=== PATIENT | male | born 1935 | race Caucasian/White ===

== ENCOUNTER → 2020-06-20 10:09 | Outpatient (CLI) | payer MEDICARE, OTHER, SELFPAY ==
[2020-06-20] MEDS: COVID-19 VACC, Ad26(JANSSEN)/PF 0.5 ML IM (10:17)
== END ==
PROVIDERS: Visit Provider Internal Medicine
DX: Z23 Encounter for immunization (principal)
CPT/HCPCS: 0031A; 91303

== ENCOUNTER → 2020-09-08 14:53 | Outpatient (ROUT) | payer MEDICARE, OTHER, SELFPAY ==
[2020-09-08 15:47] LABS: BUN Creatinine Ratio 29.8 (6-22); Blood Urea Nitrogen 51 mg/dL (9-20); Calcium 9.5 mg/dL (8.4-10.2); Carbon Dioxide 22 mmol/L (22-32); Chloride 107 mmol/L (98-107); Estimated Glomerular Filt Rate 38.3 mL/min (>60); Glucose 111 mg/dL (80-110); HEMOLYSIS < 15 (0-50); Potassium 4.9 mmol/L (3.4-5.1); Sodium 139 mmol/L (137-145)
== END ==
PROVIDERS: Visit Provider Internal Medicine
DX: I10 Essential (primary) hypertension (principal)
CPT/HCPCS: 80048

== ENCOUNTER → 2021-07-27 09:51 | Outpatient (CLI) | payer MEDICARE, OTHER, SELFPAY ==
--- NOTE | 2021-07-27 09:55 | DI.RAD.S_ITS ---
PROCEDURE: XR CHEST 2V INDICATIONS: rib pain, lower rib tenderness TECHNIQUE: 2 views of the chest were acquired. COMPARISON: [facility], , CHEST 1 VIEW, 09/18/2016, 9:07. FINDINGS: Surgical changes and devices: None. Lungs and pleura: Hyperinflated and hyperlucent lungs. Dense opacities in the right upper and right mid lung, likely pleural plaques. There is horizontal scarring at both lung bases. No acute parenchymal consolidations, effusion, or pneumothorax. Mediastinum: Mediastinal contours are normal. Heart size is normal. Bones and chest wall: No visible displaced rib fractures. Degenerative appearing vertebral body height loss and disc height loss in the midthoracic spine IMPRESSION: 1. No visible rib fractures. 2. No acute cardiopulmonary disease. Dictated by: Ethel Zuleta M.D. on 07/27/2021 at 13:54 Approved by: Ethel Zuleta M.D. on 07/27/2021 at 13:56
== END ==
PROVIDERS: PCP Internal Medicine; Referring Provider Internal Medicine; Visit Provider Internal Medicine
DX: R07.81 Pleurodynia (principal)
CPT/HCPCS: 71046

== ENCOUNTER → 2021-11-15 10:25 | Outpatient (CLI) | payer MEDICARE, OTHER, SELFPAY ==
--- NOTE | 2021-11-15 | DI.US.S_ITS ---
PROCEDURE: US CAROTID DOPPLER BI INDICATIONS: Occlusion stenosis of bilateral carotid arteries TECHNIQUE: Color and pulse Doppler interrogation was performed of both carotid systems, with image documentation and velocity measurements. COMPARISON: None. FINDINGS: Stenosis calculations are based on SRU (Society of Radiologists in Ultrasound) criteria. The flow velocities and the arterial waveforms are normal within both carotid arterial systems. Atherosclerotic plaque is seen on both sides. The estimated degree of internal carotid artery stenosis is less than 50%. Antegrade flow is confirmed within both vertebral arteries. There is elevated flow velocity seen within the right external carotid artery measuring 261 centimeters/second. IMPRESSION: No hemodynamically significant stenosis is seen of the internal carotid arteries or the vertebral arteries. By velocity criteria, there is greater than 50% stenosis seen involving the right external carotid artery. Atherosclerotic plaque is noted bilaterally. Dictated by: Bob Vera M.D. on 11/15/2021 at 11:59 Approved by: Bob Vera M.D. on 11/15/2021 at 11:59
== END ==
PROVIDERS: PCP Internal Medicine; Referring Provider Internal Medicine; Visit Provider Internal Medicine
DX: I65.23 Occlusion and stenosis of bilateral carotid arteries (principal)
CPT/HCPCS: 93880

== ENCOUNTER → 2021-12-21 14:34 | Outpatient (CLI) | payer MEDICARE, OTHER, SELFPAY ==
--- NOTE | 2021-12-21 | DI.ECHO.S_ITS ---
[facility]---------+ [facility] +---------+ : : [address] : : : : [id number] : : : : Phone: [phone] Echocardiogram Report + + :Name: DIANA ROCK Study Date: 12/21/2021 Height: 70 in : :[facility] ReadingLocation: Weight: 225 lb : : Gender: Male BSA: 2.2 m2 : :: 1935 Age: 86 yrs BP: 197/97 mmHg: :Reason For Study: Dyspnea : :Ordering Physician: : :Merry Giordano Performed By: Reji Jackson : :Referring: Merry Giordano : + + Interpretation Summary The left ventricle is normal in size and wall thickness. Left ventricular systolic function is normal. The ejection fraction is estimated to be 60-65%. There are no focal wall motion abnormalities. Diastolic parameters suggest a relaxation abnormality of the left ventricle, consistent with probable normal filling pressures. The right ventricle is normal in size and function. Pulmonary artery pressures cannot be estimated because of the lack of a measurable TR jet velocity. Both atria are normal in size. There is no significant valvular heart disease. The aortic root is normal size. Procedure: A two-dimensional transthoracic echocardiogram with color flow and Doppler was performed. The study quality was technically adequate. There is no prior echocardiogram noted for this patient. Left Ventricle: The left ventricle is normal in size and wall thickness. Left ventricular systolic function is normal. The ejection fraction is estimated to be 60-65%. There are no focal wall motion abnormalities. Diastolic parameters suggest a relaxation abnormality of the left ventricle, consistent with probable normal filling pressures. Right Ventricle: The right ventricle is normal in size and function. Atria: Both atria are normal in size. The interatrial septum grossly appears intact with no obvious evidence for an atrial septal defect. Mitral Valve: The mitral valve is normal in structure and function. There is no mitral regurgitation noted. Aortic Valve: There is mild aortic valve sclerosis. No aortic regurgitation is present. Tricuspid Valve: The tricuspid valve is normal in structure and function. There is trace tricuspid regurgitation. Pulmonary artery pressures cannot be estimated because of the lack of a measurable TR jet velocity. Pulmonic Valve: The pulmonic valve is normal in structure and function. There is no pulmonic valvular regurgitation. There is no significant valvular heart disease. Great Vessels: The aortic root is normal size. The ascending aorta could not be visualized. The IVC is of normal diameter and collapses greater than 50% with a sniff. This suggests a low right atrial pressure of 3 mm Hg. Pericardium/ Pleura There is no pericardial effusion. There is no pleural effusion. MMode/2D Measurements & Calculations LVIDd: 4.6 cm LVOT diam: 2.2 cm LVIDs: 3.0 cm Ao root diam: 3.4 cm FS: 34.8 % IVSd: 0.90 cm LVPWd: 0.70 cm LV munson. diameter/BSA (cm/m^2): 2.1 LV sys. diameter/BSA (cm/m^2): 1.4 LA dimension: 3.6 cm RA long axis: 4.0 cm LA A2 area: 22.9 cm2 IVC diam: 2.1 cm LA A4 area: 17.7 cm2 LA length (vol): 6.3 cm LA vol: 54.4 ml LA vol index: 24.8 ml/m2 TAPSE_phl: 2.1 cm Doppler Measurements & Calculations Ao V2 max: 191.0 cm/sec LVOT Max Humphrey: 129.0 cm/sec Ao V2 mean: 130.0 cm/sec LV V1 max P.7 mmHg Ao max P.0 mmHg LV V1 VTI: 27.9 cm Ao mean P.0 mmHg YANETH(I,D): 2.8 cm2 Ao V2 VTI: 37.5 cm YANETH(V,D): 2.6 cm2 sev ratio: 0.74 YANETH indexed to BSA (cm^2/m^2): 1.3 MV E max humphrey: 86.1 cm/sec SV(LVOT): 106.1 ml MV A max humphrey: 109.0 cm/sec MV E/A: 0.79 Med Peak E' Humphrey: 6.7 cm/sec E/E' med: 12.9 Lat Peak E' Humphrey: 6.6 cm/sec E/E' lat: 13.1 E/e' average: 13.0 MV dec time: 0.31 sec AV VR_phl: 0.68 MV P1/2t-pr_phl: 90.0 msec YANETH(MARLY)/BSA_phl: 1.3 Reading Physician:07:45 PM
== END ==
PROVIDERS: PCP Internal Medicine; Referring Provider Internal Medicine Pulmonary Disease; Visit Provider Internal Medicine Pulmonary Disease
DX: R06.00 Dyspnea, unspecified (principal)
CPT/HCPCS: 93306

== ENCOUNTER 2022-01-30 23:37 | Emergency (ER) | payer MEDICARE, OTHER, SELFPAY ==
[2022-01-30 23:49] VITALS: BP 219/93; PULSE 87; RESP 22; TEMP 36.8; O2SAT 96
--- NOTE | 2022-01-31 00:56 | DI.CT.S_ITS ---
PROCEDURE: CT FACIAL BONES WO CON INDICATIONS: Fall/right facial pain/injury TECHNIQUE: Noncontrast 2.5 mm thick axial images acquired from the mandible through the frontal sinuses, with coronal and sagittal reformatting. For radiation dose reduction, the following was used: automated exposure control, adjustment of mA and/or kV according to patient size. COMPARISON: None. FINDINGS: Image quality: Excellent. Bones and teeth: There is a mildly depressed fracture of the outer table of the right frontal sinus of indeterminate acuity. Orbital szymanski are intact. Nasal bones and septum are intact. Visualized portions of the mandible demonstrate no fractures or subluxation. Zygomatic arches are intact. Pterygoid plates are intact. Visualized portions of the skull base and auditory canals are intact. Sinuses: Paranasal sinuses are aerated, without fluid levels, mucosal thickening, or mucoceles. Mastoid air cells are aerated. Soft tissues: There is mild right premandibular and premaxillary soft tissue swelling. No enlarged lymph nodes. No soft tissue lacerations or debris. The globes appear intact. Vascular: Visualized vascular structures appear normal in the absence of contrast. Bony vascular foramina and canals are intact. IMPRESSION: 1. Mildly depressed fracture of the outer wall of the right frontal sinus of indeterminate acuity but likely nonacute given the absence of overlying soft tissue swelling. Recommend correlation with clinical exam and history. 2. Elsewhere, no definite acute facial bone fractures identified. Dictated by: Jonah Houston M.D. on 01/31/2022 at 2:12 Approved by: Jonah Houston M.D. on 01/31/2022 at 2:20
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
[2022-01-31] MEDS: LIDOCAINE 2% INJ SDV 5 ML (02:31)
[2022-01-31] MEDS: BACITRACIN OINT 0.9 GM PCKT 1 APPLIC TOP (02:36)
[2022-01-31 02:41] VITALS: BP 180/89; PULSE 83; RESP 18; TEMP 36.5; O2SAT 96
== END 2022-01-31 02:44 | disposition home or self-care (01) ==
PROVIDERS: Emergency Provider Emergency Medicine; PCP Internal Medicine
DX: S01.21XA Laceration without foreign body of nose, initial encounter (principal); W01.118A Fall on same level from slipping, tripping and stumbling with subsequent striking against other sharp object, initial encounter
CPT/HCPCS: 12001; 70486; 99284

== ENCOUNTER → 2022-07-06 14:42 | Outpatient (CLI) | payer MEDICARE, SELFPAY ==
--- NOTE | 2022-07-06 | DI.RAD.S_ITS ---
PROCEDURE: XR CERVICAL SPINE 2V OR 3V INDICATIONS: NECK PAIN TECHNIQUE: 3 view(s) of the cervical spine were acquired. COMPARISON: None. FINDINGS: Bones: No fractures or dislocations to the C7-T1 level. Straightening of normal cervical lordosis is seen. Degenerative endplate changes and bilateral facet hypertrophic changes are noted throughout cervical spine. The lateral masses of C1 appear intact on the odontoid view. No suspicious bony lesions. Soft tissues: No prevertebral soft tissue swelling. IMPRESSION: Degenerative disc disease throughout cervical spine. No gross acute fracture or dislocation. Dictated by: Blane Khan M.D. on 07/06/2022 at 17:01 Approved by: Blane Khan M.D. on 07/06/2022 at 17:01
== END ==
PROVIDERS: PCP Physician Assistant; Referring Provider Physician Assistant; Visit Provider Physician Assistant
DX: M50.30 Other cervical disc degeneration, unspecified cervical region (principal)
CPT/HCPCS: 72040

== ENCOUNTER → 2022-07-24 08:58 | Outpatient (CLI) | payer MEDICARE, SELFPAY ==
--- NOTE | 2022-07-24 | DI.MRI.S_ITS ---
PROCEDURE: MR CERVICAL SPINE WO CON INDICATIONS: Cervicalgia TECHNIQUE: Noncontrast sagittal T1 spin echo and T2 fast spin echo, sagittal STIR, foraminal oblique sagittal T2 fast spin echo, and axial gradient echo or T2 fast spin echo through the cervical spine. COMPARISON: None. FINDINGS: Image quality: Excellent. Alignment and Curvature: Trace anterolisthesis of C4 on C5 and of C6 on C7. Bone Marrow: Marrow demonstrates normal overall signal. Spinal Cord: Visualized spinal cord has normal size and signal. No cerebellar tonsillar herniation. Paraspinous Soft Tissues: No paravertebral masses. Prevertebral soft tissues are normal in thickness. C2-C3: There is posterior disc bulge and there is prominent ligamentous hypertrophy. There is iuga-ax-ircfoguy canal stenosis, underestimated by choice of axial scan plane. There is bilateral facet hypertrophy and bilateral uncovertebral joint hypertrophy. There is at least moderate bilateral foraminal narrowing with flattening deformity on the exiting bilateral C3 nerve roots. C3-C4: Disc space is partially fused. Posterior osteophyte flattens the ventral cord. AP diameter of the canal is 9.2 mm. There is quite prominent left facet hypertrophy. There is also right facet hypertrophy. There is moderate to severe bilateral foraminal narrowing with bilateral foraminal C4 nerve root impingement. C4-C5: No canal stenosis. Very prominent left facet hypertrophy. Right facet hypertrophy as well. There is moderate to severe left foraminal narrowing with impingement on the left C5 nerve root. There is mild right foraminal narrowing. C5-C6: Diffuse disc bulge. No canal stenosis. Quite prominent left facet hypertrophy. Right facet hypertrophy, as well. Moderate to severe bilateral foraminal narrowing with a degree of bilateral foraminal C6 nerve root impingement. C6-C7: Anterolisthesis of C6 on C7. Posterior disc bulge. Prominent bilateral facet hypertrophy. Zxle-zl-mnfelzdj central canal stenosis, underestimated by choice of axial scan plane. Mild bilateral foraminal narrowing. C7-T1: Disc bulge. Bilateral facet hypertrophy. No central canal stenosis. Hels-ak-eonzsbta left foraminal narrowing. IMPRESSION: 1. There is extensive cervical spondylitic change with impressive multilevel left facet arthropathy. There is bilateral facet arthropathy. 2. Canal stenosis is mild to moderate at C2-C3, [id number]-wypvlzwb at C3-C4, and jpak-mb-bjgskows at C6-C7. 3. Significant multilevel foraminal narrowing as described above. Findings include moderate to severe bilateral foraminal narrowing at C3-C4, moderate to severe left foraminal narrowing at C4-C5, and moderate to severe bilateral foraminal narrowing at C5-C6. Dictated by: Lee He M.D. on 07/24/2022 at 12:31 Approved by: Lee He M.D. on 07/24/2022 at 13:36
== END ==
PROVIDERS: PCP Physician Assistant; Referring Provider Physician Assistant; Visit Provider Physician Assistant
DX: M47.812 Spondylosis without myelopathy or radiculopathy, cervical region (principal); M48.02 Spinal stenosis, cervical region; M54.2 Cervicalgia
CPT/HCPCS: 72141

== ENCOUNTER → 2022-07-30 10:40 | Outpatient (CLI) | payer MEDICARE, SELFPAY ==
--- NOTE | 2022-07-30 10:41 | DI.RAD.S_ITS ---
PROCEDURE: XR SHOULDER RT MIN 2V INDICATIONS: R shoulder pain TECHNIQUE: 3 views of the shoulder were acquired. COMPARISON: None. FINDINGS: Bones: No fractures or dislocations. No suspicious bony lesions. Visualized ribs appear intact. AC joint space narrowing with associated osteophytosis. Soft tissues: No suspicious soft tissue calcifications. IMPRESSION: Moderate acromioclavicular osteoarthritis. Dictated by: Fernando Burris M.D. on 07/30/2022 at 13:19 Approved by: Fernando Burris M.D. on 07/30/2022 at 13:19
== END ==
PROVIDERS: PCP Physician Assistant; Referring Provider Anesthesiology; Visit Provider Anesthesiology
DX: M25.511 Pain in right shoulder (principal); M19.011 Primary osteoarthritis, right shoulder; M54.2 Cervicalgia; G89.29 Other chronic pain
CPT/HCPCS: 73030; 99214

== ENCOUNTER 2023-05-16 09:06 | Outpatient (CLI) | payer MEDICARE, SELFPAY ==
[2023-05-16] VITALS (8 sets, daily range): BP systolic 116–189; BP diastolic 55–93; PULSE 85–97; RESP 12–21; TEMP 36.9; O2SAT 92–96
--- NOTE | 2023-05-16 09:45 | DI.RAD.S_ITS ---
PROCEDURE: PAIN C/T INTERLAMINAR INJECT INDICATIONS: spinal stenosis COMPARISON: None. FINDINGS: Fluoroscopic spot filming was performed to verify placement of spinal needles at the C6-7 level(s), as labeled on the films. Appropriate location(s) of the needle tip(s) was confirmed by injection of iodinated contrast. IMPRESSION: Fluoroscopic guidance utilized for a C6-7 epidural injection. Dictated by: Fernando Burris M.D. on 05/16/2023 at 14:11 Approved by: Fernando Burris M.D. on 05/16/2023 at 14:11
[2023-05-16] MEDS: MIDAZOLAM 2 MG/2 ML VIAL IV (10:35)
[2023-05-16] MEDS: BUPIVACAINE 0.25% (PF) VIAL 2 ML INJ (10:39)
[2023-05-16] MEDS: DEXAMETHASONE 10 MG/ML VIAL 20 MG INJ (10:40)
[2023-05-16] MEDS: iopamidoL 15 ML VIAL 3 ML INJ (10:40)
--- NOTE | 2023-05-16 10:53 | P.PCN_ITS ---
Date/Time/Diagnoses Date of procedure: 05/16/23 Time of procedure: 10:53 Pre-procedure diagnosis: 1. CERVICAL STENOSIS, 2. CERVICAL HNP WITH UPPER EXTREMITY RADICULAR FEATURES Post-procedure diagnosis: same Procedure Notes Procedure: 1. FLUORSCOPICALLY GUIDED CONTRAST CONTROLLED INTERLAMINAR EPIDURAL STEROID INJECTION - C6/7 TL CORNELL Indications: Kvng is referred by NELLIE Larsen for treatment of Cervical HNP with Upper Extremity Paresthesias. Physician: Aston Mendez Total Fluoroscopy time (seconds): 24 Total sedation minutes: 14 Complications: none Procedure in detail & Post-procedure care: FINDINGS Cervical Stenosis due to disc deterioration and nerve root irritation and nerve root irritation DESCRIPTION OF PROCEDURE Fluoroscopically guided, contrast-controlled C6/7 translaminar epidural steroid injection with conscious sedation. Following review of allergy and review of potential side effects and complications, including, but not necessarily limited to, infection, allergic reaction, local tissue breakdown, temporary as well as permanent nerve injury, stroke, paralysis, and possible , the patient indicated that patient understood and agreed to proceed. An informed consent document was signed by the patient, witnessed by a nurse, and placed in the patient's chart. Additionally, other treatment options including modalities, medications, and physical therapy were reviewed with the patient. After review of previous anaesthesic history and IV conscious sedation the patient was deemed safe to proceed with today?s procedure with IV conscious puneet tion as ASA class II designation. Safety time-out was performed to confirm patient ID, procedure to be performed and site of procedure. IV sedation was accomplished with a combination of 2mg of Versed administered by the RN after DO order, titrated to patient comfort during the course of the procedure while the patient remained responsive to all verbal commands. In the prone position, following sterile prep and drape of the cervical region, the C6/7 translaminar space was identified fluoroscopically. The skin was anesthetized via a 25-gauge 1.5-inch needle with 1% lidocaine solution. At this point, a 25-gauge, 2.5-inch short bevel spinal needle was atraumatically introduced and advanced under fluoroscopic guidance into epidural space at the C6/7 translaminar space. Depth was confirmed on lateral view. Radiological data, including multiple fluoroscopic views of the cervical spine, reveal a spinal needle at the C6/7 translaminar space. Lateral views then show placement of the needle in the epidural space. Subsequent views show contrast material flowing superiorly and inferiorly in the epidural space. DSA fluoroscopy with live contrast injection, once again, confirmed no vascular or intrathecal uptake. At this point, using loss of resistance technique with saline and air, the epidural space was entered. Following negative aspiration, injection of approximately 1.5 cc of Isovue-200 with live fluoroscopy in the AP view confirmed epidural flow in the epidural space without vascular or intrathecal uptake observed. Subsequently, a test dose of 1 cc of 1% lidocaine solution was injected and patient was observed for two minutes without signs or symptoms of complications, including abdominal pain, shortness of breath, bilateral upper or lower extremity weakness, nausea and vomiting, prior to steroid injection. At this point, 2cc or 20mg of dexamethasone was then injected without incident. The patient tolerated the procedure well without signs or symptoms of com plications prior to being transferred to the recovery area for further monitoring, The patient was then transferred to the recovery area where they were observed for an appropriate period of time after the injection. The patient reported a VAS score of 6 prior to the procedure and a post-procedure VAS of 0. POST OP INSTRUCTIONS The patient was provided a Pain Log to continue to record their response to the target-specific procedure prior to follow-up visit with the referring provider. Additionally, specific post-injection care instructions and a contact number to our office were provided if concerns arise regarding possible complications associated with the procedure are suspected.
== END 2023-05-16 11:13 | disposition home or self-care (01) ==
LOC: RAD 09:06
PROVIDERS: PCP Physician Assistant; Referring Provider Physical Medicine & Rehabilitation; Visit Provider Physical Medicine & Rehabilitation
DX: M48.02 Spinal stenosis, cervical region (principal); M50.123 Cervical disc disorder at C6-C7 level with radiculopathy
CPT/HCPCS: 62321; 99152; J1100; J2250; J3490

== ENCOUNTER → 2023-05-17 08:51 | Outpatient (CLI) | payer MEDICARE, SELFPAY ==
[2023-05-17 10:51] LABS: Creatinine Urine Random 107.6 mg/dL
[2023-05-17 10:55] LABS: Microalbumi Creatinin Ratio Ur 51.1 ug/mg CR (<30); Microalbumin Urine Random 5.5 mg/dL (0-1.6)
[2023-05-17 10:57] LABS: Add Manual Diff / Slide Review NO; Basophils Absolute Auto 0 /uL (0-100); Basophils Percent Auto 0.1 % (0-2); Eosinophils Absolute Auto 0 /uL (0-450); Eosinophils Percent Auto 0.1 % (2-4); Hematocrit 36.6 % (41-53); Hemoglobin 12.8 g/dL (13.5-17.5); Lymphocytes Absolute Auto 400 /uL (1100-4500); Lymphocytes Percent Auto 4.8 % (25-40); Mean Corpuscular HGB Conc 34.9 % (30-36); Mean Corpuscular Hemoglobin 35.6 PG (26-34); Monocytes Absolute Auto 300 /uL (0-900); Monocytes Percent Auto 4.2 % (3-14); Neutrophils Absolute Auto 7100 /uL (1500-7000); Neutrophils Percent Auto 90.8 % (50-75); Platelet Count 155 X10^3/uL (150-400); Red Blood Cell Count 3.59 X10^6/uL (4.5-5.9); Red Cell Distribution Width 13.4 % (11.6-14.8); White Blood Cell Count 7.8 X10^3/uL (4.5-11.0)
[2023-05-17 11:07] LABS: Alanine Aminotransferase 20 IU/L (<50); Albumin 4.2 g/dL (3.5-5.0); Albumin Globulin Ratio 1.4 (1.0-2.8); Alkaline Phosphatase 67 U/L (38-126); Aspartate Aminotransferase 24 IU/L (17-59); BUN Creatinine Ratio 29.4 (6-22); Bilirubin Total 0.9 mg/dL (0.2-1.3); Blood Urea Nitrogen 42 mg/dL (9-20); Calcium 9.5 mg/dL (8.4-10.2); Carbon Dioxide 18 mmol/L (22-32); Chloride 107 mmol/L (98-107); Cholesterol 190 mg/dL (140-199); Estimated Glomerular Filt Rate 47 mL/min (>60); Globulin 3.1 g/dL (1.7-4.1); Glucose 111 mg/dL (80-110); HDL Cholesterol 69 mg/dL (40-60); HEMOLYSIS < 15 (0-50); LDL Cholesterol Calculated 108 mg/dL (<100); Magnesium 1.5 mg/dL (1.6-2.3); Potassium 5.1 mmol/L (3.4-5.1); Sodium 135 mmol/L (137-145); Total Protein 7.3 g/dL (6.3-8.2); Triglycerides 66 mg/dL (35-150)
[2023-05-17 11:41] LABS: TSH w/ Reflex to FT4 1.89 uIU/mL (0.47-4.68)
[2023-05-19 06:08] LABS: x Labcorp Estim. Avg Glu (eAG) 105 mg/dL (.); x Labcorp Hemoglobin A1c 5.3 % (4.8-5.6)
== END ==
PROVIDERS: PCP Physician Assistant; Referring Provider Internal Medicine Cardiovascular Disease; Visit Provider Internal Medicine Cardiovascular Disease
DX: I10 Essential (primary) hypertension; I49.3 Ventricular premature depolarization; E78.5 Hyperlipidemia, unspecified; R06.02 Shortness of breath; Z13.1 Encounter for screening for diabetes mellitus; I20.0 Unstable angina
CPT/HCPCS: 36415; 80053; 80061; 82043; 82570; 83036; 83735; 84443; 85025

== ENCOUNTER → 2023-07-02 10:30 | Outpatient (CLI) | payer MEDICARE, SELFPAY ==
--- NOTE | 2023-07-02 10:31 | DI.CT.S_ITS ---
PROCEDURE: CT CHEST WO CON INDICATIONS: Solitary pulmonary nodule TECHNIQUE: Noncontrast 2.0-2.5 mm thick sections acquired from the pulmonary apices to the posterior costophrenic angles. 7 mm thick axial MIP, and 5 mm coronal and sagittal reformats were then acquired. For radiation dose reduction, the following was used: automated exposure control, adjustment of mA and/or kV according to patient size. COMPARISON: X-ray chest 06/19/2023. FINDINGS: Image quality: Diagnostic. Lower Neck: No enlarged lymph nodes. Partially visualized calcification in the region of the bilateral tonsils/upper cervical region, incompletely evaluated. Thyroid: No thyroid nodules which require sonographic follow up, per consensus guidelines. Axillae: No enlarged lymph nodes. Chest Wall: Unremarkable. Bones: Degenerative changes, kyphosis Lungs and Pleura: Emphysematous lung changes No pneumothorax or pleural effusions. No consolidation or suspicious nodules. Multiple scattered 3 millimeter nodule seen, most likely benign. Benign calcified 6 x 5 x 7 millimeter nodule seen in the right upper lung 83/3. The 1.1 centimeter density seen on prior x-ray chest is not definitely visualized in the lung truong . Heart: Heart size is normal. No pericardial effusion. Severe coronary calcifications Thoracic Vessels: The aorta and pulmonary arteries demonstrate normal size. Mediastinum and Toya: No enlarged lymph nodes. Esophagus: No wall thickening. No hiatal hernia. Upper Abdomen: Visualized upper abdomen solid organs and bowel loops appear normal. IMPRESSION: 1. No suspicious pulmonary nodule seen. Pulmonary nodule/chest density noted on 06/19/2023 x-ray chest is not discernible on today's scan. Emphysematous lung changes present. 2. Severe coronary calcifications noted Dictated by: Neri Rae M.D. on 07/02/2023 at 14:02 Approved by: Neri Rae M.D. on 07/02/2023 at 14:25
== END ==
LOC: CT 10:31
PROVIDERS: PCP Physician Assistant; Referring Provider Physician Assistant; Visit Provider Physician Assistant
DX: R91.1 Solitary pulmonary nodule (principal); I25.10 Atherosclerotic heart disease of native coronary artery without angina pectoris
CPT/HCPCS: 71250

== ENCOUNTER → 2023-08-01 09:13 | Outpatient (CLI) | payer MEDICARE, SELFPAY ==
--- NOTE | 2023-08-01 09:13 | DI.NM.S_ITS ---
PROCEDURE: NM CRISTIANA PERF SPECT R&S PHARM Rest and pharmacological stress myocardial perfusion SPECT with gated imaging and ejection fraction RADIOPHARMACEUTICAL: 12.6 mCi Tc-99m tetrafosmin IV at rest and 27/2 mCi Tc-99m tetrafosmin IV at peak effect of pharmacological stress. Uuq-[id number]-[id number] was performed. INDICATIONS: FORMER SMOKER/SHORTNESS OF BREATH TECHNIQUE: Radiopharmaceutical was injected at peak stress test, and also at rest. SPECT images were obtained. SPECT myocardial perfusion images were displayed in short axis, horizontal long axis, and vertical long axis views. Gated images were reviewed using TRANSCORP software. COMPARISON: None. CARDIAC STRESS: A pharmacologic stress test was performed under the supervision of an attending staff, using an infusion of lexiscan 0.4mg IV X1. Hemodynamic data: There is normal blood pressure and heart rate response to pharmacologic stress. Symptoms: The patient denied anginal chest pain. Aminophylline: none EKG: No diagnostic changes of ischemia; occasional PVCs during the study. FINDINGS: Raw data: There is good myocardial uptake of radiotracer. No significant motion artifacts. Gxsb-yu-volky ratio is 0.31 (normal is less than 0.38 for tetrafosmin tracer). Left ventricle function: Gated images demonstrate normal left ventricular wall thickening. No segmental wall motion abnormalities. No transient ischemic dilation; TID is 1.17 (normal less than 1.3). Left ventricle resting end diastolic volume is 100 mL. Left ventricle stress ejection fraction is 72% ; normal range is above 45%. Myocardial perfusion: There is a mildly intense fixed apical defect that persists on prone imaging and it appears to be apical thinning artifact but old non-transmural infarction can't be definitively excluded. No ischemia. SSS 1. IMPRESSION: Low risk, probably normal pharmaceutical nuclear stress test. 1) There is a mildly intense fixed apical defect that persists on prone imaging and it appears to be apical thinning artifact but old non-transmural infarction can't be definitively excluded. No ischemia. SSS 1. 2) Normal left ventricular size, wall motion, and systolic function (EF post stress 72%). 3) No ST changes with lexiscan. 4) No angina during the study. 5) No prior nuclear stress test available for comparison. Dictated by: David Abreu MD on 08/02/2023 at 12:52 Approved by: David Abreu MD on 08/02/2023 at 12:54
--- NOTE | 2023-08-01 09:14 | DI.ECHO.S_ITS ---
[facility] : : [address] : : [place] : : [id number] : : Phone: [phone] Echocardiogram Report + + :Name: PRANAVDIANA VARGAS Dontae Study Date: 08/01/2023 Height: 70 in : :[facility] ReadingLocation: Weight: 224 lb : : Gender: Male BSA: 2.2 m2 : :: 1935 Age: 87 yrs BP: 151/89 mmHg: :Reason For Study: FORMER SMOKER, SHORTNESS OF BREATH : :Ordering Physician: ISHMAEL, : :CARO Diggs Performed By: Katherine Sims : :Referring: CARO KEY : + + Interpretation Summary The ejection fraction is estimated to be 60-65%. Diastolic function could not be accurately assessed due to contradictory data. The right ventricle is normal in size and function. No significant valvular abnormalities. Pulmonary artery pressures cannot be estimated because of the lack of a measurable TR jet velocity but the IVC suggests a CVP of around 3 mmHg. Compared to the prior study dated 12/21/2021, no significant change. Procedure: A two-dimensional transthoracic echocardiogram with color flow and Doppler was performed. The study quality was technically adequate. Comparison is made with the echocardiogram of 12/21/2021. The patient had occasional PVCs during the exam. The heart rate ranged between 63-73 bpm during the study. Left Ventricle: The left ventricle is normal in size and wall thickness. The ejection fraction is estimated to be 60-65%. Diastolic function could not be accurately assessed due to contradictory data. Right Ventricle: The right ventricle is normal in size and function. Atria: The left atrial size is normal. Right atrial size is normal. There is no Doppler evidence for an interatrial shunt. Mitral Valve: There is mild mitral annular calcification. There is trace mitral regurgitation. Aortic Valve: The aortic valve is slightly calcified. There is mild aortic valve sclerosis. The aortic valve is trileaflet. The peak aortic velocity is 2.2 m/sec. The aortic valve mean gradient is 11 mmHg. The calculated aortic valve area is 1.9 cm2. There is no hemodynamically significant valvular aortic stenosis. No aortic regurgitation is present. Tricuspid Valve: The tricuspid valve is normal in structure and function. There is trace tricuspid regurgitation. Pulmonary artery pressures cannot be estimated because of the lack of a measurable TR jet velocity but the IVC suggests a CVP of around 3 mmHg. Pulmonic Valve: The pulmonic valve leaflets are thin and pliable; valve motion is normal. There is trace pulmonic regurgitation. Great Vessels: The aortic root is normal size. The ascending aorta is at the upper limits of normal in size. The IVC is of normal diameter and collapses greater than 50% with a sniff. This suggests a low right atrial pressure of 3 mm Hg. Pericardium/ Pleura There is no pericardial effusion. There is no pleural effusion. MMode/2D Measurements & Calculations LVIDd: 5.3 cm LVOT diam: 2.1 cm LVIDs: 3.1 cm Ao root diam: 3.5 cm FS: 41.9 % asc Aorta Diam: 3.7 cm IVSd: 0.99 cm Ao Arch Diam (Prox Trans): 3.1 cm LVPWd: 1.1 cm LV munson. diameter/BSA (cm/m^2): 2.4 LV sys. diameter/BSA (cm/m^2): 1.4 LA A2 area: 22.5 cm2 RA long axis: 5.6 cm LA A4 area: 23.5 cm2 RA area: 17.5 cm2 LA length (vol): 6.3 cm RA vol: 46.5 ml LA vol: 71.5 ml RA : 21.2 ml/m2 LA vol index: 32.7 ml/m2 IVC diam: 1.8 cm RVD1 (basal): 3.7 cm RVD2 (mid): 2.9 cm TAPSE: 1.8 cm Doppler Measurements & Calculations Ao V2 max: 222.1 cm/sec LVOT Max Humphrey: 120.2 cm/sec Ao V2 mean: 149.8 cm/sec LV V1 max P.8 mmHg Ao max P.7 mmHg LV V1 VTI: 24.6 cm Ao mean P.0 mmHg YANETH(I,D): 1.9 cm2 Ao V2 VTI: 45.2 cm YANETH(V,D): 1.9 cm2 sev ratio: 0.54 YANETH indexed to BSA (cm^2/m^2): 0.89 MV E max humphrey: 83.6 cm/sec PA V2 max: 124.5 cm/sec MV A max humphrey: 123.9 cm/sec PA V2 mean: 83.4 cm/sec MV E/A: 0.67 PA mean P.1 mmHg Med Peak E' Humphrey: 4.5 cm/sec PA pr(Accel): 46.5 mmHg E/E' med: 18.6 Lat Peak E' Humphrey: 5.3 cm/sec E/E' lat: 15.9 E/e' average: 17.2 MV dec time: 0.[address] [facility] 87.6 ml Reading Physician:05:25 PM
== END ==
PROVIDERS: PCP Physician Assistant; Referring Provider Internal Medicine Cardiovascular Disease; Visit Provider Internal Medicine Cardiovascular Disease
DX: I34.81 Nonrheumatic mitral (valve) annulus calcification (principal); I35.8 Other nonrheumatic aortic valve disorders; R06.02 Shortness of breath; Z87.891 Personal history of nicotine dependence
CPT/HCPCS: 78452; 93017; 93306; A9502; J2785

== ENCOUNTER 2023-12-31 14:32 | Emergency (ER) | payer MEDICARE, SELFPAY ==
[2023-12-31] VITALS (14 sets, daily range): BP systolic 164–235; BP diastolic 77–109; PULSE 77–89; RESP 13–23; TEMP 36.1; O2SAT 95–97; BMI 32.1
--- NOTE | 2023-12-31 14:41 | EKG_ITS ---
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
--- NOTE | 2023-12-31 14:41 | DI.RAD.S_ITS ---
PROCEDURE: XR CHEST 1V INDICATIONS: chest pain TECHNIQUE: One view of the chest was acquired. COMPARISON: [facility], CR, XR CHEST 2V, 07/27/2021, 9:44. FINDINGS: Surgical changes and devices: None. Lungs and pleura: Lungs are clear. No pleural effusions or pneumothorax. Mediastinum: Mediastinal contours appear normal. Heart size is normal. Bones and chest wall: No suspicious bony lesions. Old right posterior lateral mid rib deformity is seen. Overlying soft tissues appear unremarkable. IMPRESSION: No acute cardiopulmonary pathology. Dictated by: Blane Khan M.D. on 12/31/2023 at 15:44 Approved by: Blane Khan M.D. on 12/31/2023 at 15:44
--- NOTE | 2023-12-31 14:44 | ED_ITS ---
HPI - General Adult General Chief complaint: Dizziness Stated complaint: dizziness, vomitting, high BP Time Seen by Provider: 12/31/23 14:44 Source: patient Mode of arrival: Wheelchair History of Present Illness HPI narrative: 88-year-old gentleman with a history of asthma/emphysema, hypertension, arthritis, hyperlipidemia, BPH presents complaining of acute dizziness followed by an episode emesis and blood pressure is noted to be high after the episode of emesis. He has describing no chest pain no shortness a breath. You had some fresh soup just prior to the emesis his had the same and has not been feeling ill. He describes no headache abdominal pain no diarrhea no constipation. Related Data Home Medications Medication Instructions Recorded Confirmed albuterol sulfate 90 mcg/actuation 2 puff INH ##0 09/18/16 12/31/23 aerosol inhaler (Ventolin HFA) fluticasone 100 mcg-salmeterol 50 1 puff BID ##0 09/18/16 12/31/23 mcg/dose blistr powdr for inhalation (Advair Diskus) hydrochlorothiazide 25 mg tablet 25 mg PO QDAY ##0 09/18/16 12/31/23 tiotropium bromide 18 mcg capsule 18 mcg RT 0600 ##0 09/18/16 12/31/23 with inhalation device (Spiriva with HandiHaler) trazodone 50 mg tablet 50 mg PO BEDTIME 07/30/22 12/31/23 allopurinol 100 mg tablet 100 mg PO DAILY 08/20/22 12/31/23 losartan 100 mg tablet 100 mg PO DAILY 04/29/23 12/31/23 tamsulosin 0.4 mg capsule 0.4 mg PO DAILY 04/29/23 12/31/23 ipratropium 0.5 mg-albuterol 3 mg 1.5 ml inhalation ONCE PRN 08/21/23 12/31/23 (2.5 mg base)/3 mL nebulization soln metoprolol succinate 25 mg 25 mg PO DAILY 08/21/23 12/31/23 tablet,extended release 24 hr rosuvastatin 10 mg tablet 10 mg PO ONCE PM 08/21/23 12/31/23 Previous Rx's Medication Instructions Recorded meloxicam 15 mg tablet 15 mg PO DAILY #90 tabs 08/29/23 ondansetron 4 mg disintegrating 4 mg PO Q8H PRN nausea and 12/31/23 tablet vomiting #10 tabs Allergies Allergy/AdvReac Type Severity Reaction Status Date / Time No Known Drug Allergies Allergy Verified 12/31/23 14:34 Review of Systems Review of Systems Narrative: Pertinent positive and negative findings as per HPI Patient History Medical History Cervical radiculopathy Facet arthritis of cervical region Post-void dribbling History of malignant neoplasm of prostate Biceps tendonitis on right Cervical spondylosis Subacromial bursitis Shoulder impingement Neck pain Right shoulder pain Social History Smoking Status: Former smoker Smoking Status: Former smoker Substance Use Type: does not use Exam Initial Vital Signs Initial Vital Signs: Vital Signs Temperature 97.0 F L 12/31/23 14:34 Pulse Rate 80 12/31/23 14:34 Respiratory Rate 18 12/31/23 14:34 Blood Pressure 215/99 H 12/31/23 14:34 Pulse Oximetry 97 12/31/23 14:34 Oxygen Delivery Method Room Air 12/31/23 14:34 General: Slightly pale but in no acute distress. Able to give a complete and coherent history. Well-nourished well-developed HEENT: Moist mucous membranes, normal sclera with reactive pupils, Respiratory: Lungs are clear to auscultation, no wheezing no rales no rhonchi. Full and symmetrical air movement Cardiac: Regular rate and rhythm, 4-6 systolic murmur Abdomen: Soft, nontender, no rebound or guarding, no flank pain Skin: Warm and dry, no rashes Neurologic: Grossly neurologically intact with no obvious asymmetries or abnorm alities Extremities: No trauma, well perfused, no lower extremity edema Psych: Cooperative, appropriate insight and affect Course Orders Ordered: ED Orders 12/31/23 14:41 XR chest 1V Stat Complete Blood Count AUTO DIFF Stat Comprehensive Metabolic Panel Stat Lipase Stat Magnesium Stat NT-proBNP (BNP-Adult 18+) Stat PTT Partial Thromboplastin Juan Pablo Stat Prothrombin Time INR Stat Troponin & CK Cardiac Panel Stat EKG-12 Lead Stat Vital Signs Vital signs: Vital Signs - 8 hr 12/31/23 14:34 Temperature 97.0 F L Pulse Rate 80 Respiratory Rate 18 Blood Pressure 215/99 H Pulse Oximetry 97 Oxygen Delivery Method Room Air Medical Decision Making MDM Narrative Medical decision making narrative: CC: Dizziness, vomiting Complicating co-morbidities: Asthma, hypertension, arthritis, hyperlipidemia, BPH Data collected from: patient, Differential considered: Gastroenteritis, food related emesis, bowel obstruction, acute coronary syndrome Exam documented above, pertinent findings include: After the episode of emesis patient is feeling significantly better, exam is benign Lab Test results independently reviewed as above. Pertinent findings: CBC shows a white count of 6.6 otherwise unremarkable Chemistries are notable for a potassium at 5.6, creatinine at 1.37 which is improved over his baseline. Magnesium is slightly elevated at 1.5 troponin is undetectable proBNP is normal Lipase is unremarkable Independently reviewed EKG: Sinus rhythm at a rate of 81, PVCs are appreciated. Partial bundle-branch block. No acute ischemic changes Imaging studies independently reviewed: Chest x-ray is unremarkable Treatments: Fluids, Zofran Re-evaluations: Patient states that he is feeling significantly better however still slightly dizzy. He has not having positional dizziness nor nystagmus. He needs to void after a L of fluid that has been given we will check urine sample Discussion: Patient is clearly feeling better after the fluids in the Zofran. Still a slight bit of nausea. No evidence of benign positional vertigo. No evidence of acute bacterial infection viral infection acute coronary syndrome, anemia, acute surgical abdomen or alternate diagnosis that would require additional workup, advanced imaging or hospitalization. He will be given a prescription for Zofran and I strongly encouraged them to return if he has worsening symptoms. Questions are answered and they are safe for discharge Discharge Plan Departure Patient Disposition: Home Clinical Impression: Dizziness Nausea & vomiting Qualifiers: Vomiting type: unspecified Qualified Code(s): R11.2 - Nausea with vomiting, unspecified Instructions: Nausea and Vomiting-Adult Activity Restrictions/Additional Instructions: Thank you for coming in today Your workup does not show significant bacterial or viral infection, no significant kidney function or liver function abnormalities. No heart attack or heart attack like syndromes. Electrolytes are appropriate. There was no sign of active bleeding. I am not seeing signs of stroke. Fortunately, and no life-threatening abnormalities appreciated. You were slightly improved with some fluid and nausea medicine. I am going to give you a prescription for Zofran, the nausea medicine, sometimes this also helps a bit with dizziness. You can take a dose every 6 hours as needed If you find that you are getting worse or develop any new symptoms, please feel free to return to the emergency department for further evaluation. Prescriptions: New ondansetron 4 mg tablet,disintegrating 4 mg PO Q8H PRN (Reason: nausea and vomiting) Qty: 10 0RF No Action hydrochlorothiazide 25 MG tablet 25 mg PO QDAY Qty: 0 fluticasone propion-salmeterol [Advair Diskus] 100 MCG/50 MCG blister with device 1 puff BID Qty: 0 albuterol sulfate [Ventolin HFA] 90 MCG/PUFF HFA aerosol inhaler 2 puff INH Qty: 0 tiotropium bromide [Spiriva with HandiHaler] 18 MCG capsule, w/inhalation device 18 mcg RT 0600 Qty: 0 meloxicam 15 mg tablet 15 mg PO DAILY Qty: 90 1RF trazodone 50 mg tablet 50 mg PO BEDTIME Patient Comments: take 1 tablet by mouth at bedtime if needed allopurinol 100 mg tablet 100 mg PO DAILY tamsulosin 0.4 mg capsule 0.4 mg PO DAILY losartan 100 mg tablet 100 mg PO DAILY rosuvastatin 10 mg tablet 10 mg PO ONCE PM metoprolol succinate 25 mg tablet extended release 24 hr 25 mg PO DAILY ipratropium-albuterol 0.5 mg-3 mg(2.5 mg base)/3 mL solution for nebulization 1.5 ml inhalation ONCE PRN Referrals: Georgina Larsen PA-C [Primary Care Provider] - Stand Alone Forms: Patient Portal/API
[2023-12-31] MEDS: SODIUM CHLORIDE 0.9% 1,000 ML 1000 ML IV (14:59)
[2023-12-31] MEDS: ONDANSETRON 4 MG/2 ML INJ IV ×2 (14:59→16:52)
[2023-12-31 15:02] LABS: Add Manual Diff / Slide Review NO; Basophils Absolute Auto 0 /uL (0-100); Basophils Percent Auto 0.6 % (0-2); Eosinophils Absolute Auto 100 /uL (0-450); Eosinophils Percent Auto 2.2 % (2-4); Hematocrit 36.5 % (41-53); Hemoglobin 12.6 g/dL (13.5-17.5); Lymphocytes Absolute Auto 600 /uL (1100-4500); Mean Corpuscular HGB Conc 34.5 % (30-36); Mean Corpuscular Hemoglobin 36.2 PG (26-34); Mean Corpuscular Volume 104.9 fL (80-100); Monocytes Absolute Auto 300 /uL (0-900); Neutrophils Absolute Auto 5500 /uL (1500-7000); Neutrophils Percent Auto 83.2 % (50-75); Platelet Count 151 X10^3/uL (150-400); Red Blood Cell Count 3.47 X10^6/uL (4.5-5.9); Red Cell Distribution Width 13.4 % (11.6-14.8); White Blood Cell Count 6.6 X10^3/uL (4.5-11.0)
[2023-12-31 15:09] LABS: Prothrombin Time 11.4 SECONDS (9.4-12.5)
[2023-12-31 15:11] LABS: PTT Partial Thromboplastin Tim 28 SECONDS (25.1-36.5)
[2023-12-31 15:16] LABS: Alanine Aminotransferase 18 IU/L (<50); Albumin 3.9 g/dL (3.5-5.0); Albumin Globulin Ratio 1.3 (1.0-2.8); Alkaline Phosphatase 81 U/L (38-126); Aspartate Aminotransferase 26 IU/L (17-59); BUN Creatinine Ratio 24.8 (6-22); Bilirubin Total 0.8 mg/dL (0.2-1.3); Blood Urea Nitrogen 34 mg/dL (9-20); Calcium 9.4 mg/dL (8.4-10.2); Carbon Dioxide 19 mmol/L (22-32); Chloride 109 mmol/L (98-107); Creatine Kinase 113 U/L (55-170); Estimated Glomerular Filt Rate 50 mL/min (>60); Glucose 123 mg/dL (80-110); HEMOLYSIS < 15 (0-50); Lipase 83 U/L (23-300); Magnesium 1.5 mg/dL (1.6-2.3); Sodium 134 mmol/L (137-145); Total Protein 6.9 g/dL (6.3-8.2)
[2023-12-31 15:22] LABS: Potassium 5.6 mmol/L (3.4-5.1)
[2023-12-31 15:27] LABS: NT-proBNP (BNP-Adult 18+) 235 pg/mL (<450); Troponin I < 0.012 ng/mL (0.01-0.034)
--- NOTE | 2023-12-31 16:10 | PC.NURSE ---
LUMBER CUTTER Note: [facility]
== END 2023-12-31 17:00 | disposition home or self-care (01) ==
PROVIDERS: Emergency Provider Emergency Medicine; PCP Physician Assistant
DX: R42 Dizziness and giddiness (principal); R11.2 Nausea with vomiting, unspecified; I10 Essential (primary) hypertension; R79.89 Other specified abnormal findings of blood chemistry
CPT/HCPCS: 36415; 71045; 80053; 82550; 83690; 83735; 83880; 84484; 85025; 85610; 85730; 93005; 93010; 96361; 96374; 96376; 99284; J2405

== ENCOUNTER 2024-03-03 09:07 | Outpatient (CLI) | payer MEDICARE, SELFPAY ==
[2024-03-03] VITALS (10 sets, daily range): BP systolic 108–176; BP diastolic 54–79; PULSE 74–92; RESP 16–22; TEMP 36.6; O2SAT 92–95
--- NOTE | 2024-03-03 09:08 | DI.RAD.S_ITS ---
PROCEDURE: PAIN C/T INTERLAMINAR INJECT INDICATIONS: C6-7 translaminar CORNELL COMPARISON: [facility], , PAIN C/T INTERLAMINAR INJECT, 05/16/2023, 11:39. FINDINGS: Fluoroscopic spot filming was performed to verify placement of spinal needles at the C6-C7 level(s), as labeled on the films. Appropriate location(s) of the needle tip(s) was confirmed by injection of iodinated contrast. IMPRESSION: C6-C7 translaminar injection, please see procedure note for full details. Dictated by: Abdulkadir Lovelace M.D. on 03/03/2024 at 20:31 Approved by: Abdulkadir Lovelace M.D. on 03/03/2024 at 20:32
[2024-03-03] MEDS: MIDAZOLAM 2 MG/2 ML VIAL IV (10:37)
[2024-03-03] MEDS: DEXAMETHASONE 10 MG/ML VIAL 20 MG INJ (10:41)
[2024-03-03] MEDS: BUPIVACAINE 0.25% (PF) VIAL 2 ML INJ (10:41)
[2024-03-03] MEDS: iopamidoL 15 ML VIAL 3 ML INJ (10:41)
--- NOTE | 2024-03-03 10:58 | P.PCN_ITS ---
Date/Time/Diagnoses Date of procedure: 03/03/24 Time of procedure: 10:58 Pre-procedure diagnosis: 1. CERVICAL STENOSIS, 2. CERVICAL HNP WITH UPPER EXTREMITY RADICULAR FEATURES Post-procedure diagnosis: same Procedure Notes Procedure: 1. FLUORSCOPICALLY GUIDED CONTRAST CONTROLLED INTERLAMINAR EPIDURAL STEROID INJECTION - C6/7 TL CORNELL Indications: Kvng is referred by NELLIE Larsen for treatment of Cervical HNP with Upper Extremity Paresthesias. Physician: Aston Mendez Total Fluoroscopy time (seconds): 34 Total sedation minutes: 13 Complications: none Procedure in detail & Post-procedure care: FINDINGS Cervical Stenosis due to disc deterioration and nerve root irritation and nerve root irritation DESCRIPTION OF PROCEDURE Fluoroscopically guided, contrast-controlled C6/7 translaminar epidural steroid injection with conscious sedation. Following review of allergy and review of potential side effects and complications, including, but not necessarily limited to, infection, allergic reaction, local tissue breakdown, temporary as well as permanent nerve injury, stroke, paralysis, and possible , the patient indicated that patient understood and agreed to proceed. An informed consent document was signed by the patient, witnessed by a nurse, and placed in the patient's chart. Additionally, other treatment options including modalities, medications, and physical therapy were reviewed with the patient. After review of previous anaesthesic history and IV conscious sedation the patient was deemed safe to proceed with today?s procedure with IV conscious puneet tion as ASA class II designation. Safety time-out was performed to confirm patient ID, procedure to be performed and site of procedure. IV sedation was accomplished with a combination of 2mg of Versed administered by the RN after DO order, titrated to patient comfort during the course of the procedure while the patient remained responsive to all verbal commands. In the prone position, following sterile prep and drape of the cervical region, the C6/7 translaminar space was identified fluoroscopically. The skin was anesthetized via a 25-gauge 1.5-inch needle with 1% lidocaine solution. At this point, a 25-gauge, 2.5-inch short bevel spinal needle was atraumatically introduced and advanced under fluoroscopic guidance into epidural space at the C6/7 translaminar space. Depth was confirmed on lateral view. Radiological data, including multiple fluoroscopic views of the cervical spine, reveal a spinal needle at the C6/7 translaminar space. Lateral views then show placement of the needle in the epidural space. Subsequent views show contrast material flowing superiorly and inferiorly in the epidural space. DSA fluoroscopy with live contrast injection, once again, confirmed no vascular or intrathecal uptake. At this point, using loss of resistance technique with saline and air, the epidural space was entered. Following negative aspiration, injection of approximately 1.5 cc of Isovue-200 with live fluoroscopy in the AP view confirmed epidural flow in the epidural space without vascular or intrathecal uptake observed. Subsequently, a test dose of 1 cc of 1% lidocaine solution was injected and patient was observed for two minutes without signs or symptoms of complications, including abdominal pain, shortness of breath, bilateral upper or lower extremity weakness, nausea and vomiting, prior to steroid injection. At this point, 2cc or 20mg of dexamethasone was then injected without incident. The patient tolerated the procedure well without signs or symptoms of com plications prior to being transferred to the recovery area for further monitoring, The patient was then transferred to the recovery area where they were observed for an appropriate period of time after the injection. The patient reported a VAS score of 6 prior to the procedure and a post-procedure VAS of 0. POST OP INSTRUCTIONS The patient was provided a Pain Log to continue to record their response to the target-specific procedure prior to follow-up visit with the referring provider. Additionally, specific post-injection care instructions and a contact number to our office were provided if concerns arise regarding possible complications associated with the procedure are suspected.
== END 2024-03-03 11:25 | disposition home or self-care (01) ==
PROVIDERS: PCP Physician Assistant; Referring Provider Physical Medicine & Rehabilitation; Visit Provider Physical Medicine & Rehabilitation
DX: M48.02 Spinal stenosis, cervical region (principal); M50.123 Cervical disc disorder at C6-C7 level with radiculopathy
CPT/HCPCS: 62321; 99152; J1100; J2250; J3490

== ENCOUNTER 2024-05-05 01:15 | Emergency (ER) | payer MEDICARE, SELFPAY ==
[2024-05-05] VITALS (11 sets, daily range): BP systolic 143–165; BP diastolic 68–103; PULSE 73–81; RESP 15–57; TEMP 37.1; O2SAT 92–98; BMI 34.0
--- NOTE | 2024-05-05 01:43 | DI.RAD.S_ITS ---
PROCEDURE: XR CHEST 1V INDICATIONS: chest pain TECHNIQUE: One view of the chest was acquired. COMPARISON: [facility], CR, XR CHEST 1V, 12/31/2023, 14:57. FINDINGS: Surgical changes and devices: None. Lungs and pleura: Streaky bibasilar opacities. Mediastinum: Mediastinal contours appear normal. Heart size is normal. Bones and chest wall: No suspicious bony lesions. Overlying soft tissues appear unremarkable. IMPRESSION: Streaky bibasilar opacities. Developing pneumonia versus atelectasis cannot be excluded. The above findings are concordant with preliminary report. Dictated by: Scarlett Ortiz M.D. on 05/05/2024 at 8:22 Approved by: Scarlett Ortiz M.D. on 05/05/2024 at 8:22
--- NOTE | 2024-05-05 01:56 | EKG_ITS ---
[place] [id number] [place] [id number] Test Date: 2024-05-05 Pat Name: Kvng Velasquez Department: 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
--- NOTE | 2024-05-05 02:00 | PC.NURSE ---
pt c/o not feeling good today, also with dc and matting to both eyes,
[2024-05-05 02:20] LABS: Influenza A - CEPHEID Flu A NEGATIVE (NEGATIVE); Influenza B - CEPHEID Flu B NEGATIVE (NEGATIVE); Respiratory Syncytial Virus Negative (Negative)
--- NOTE | 2024-05-05 02:26 | ED.HA ---
HPI - Headache General Chief Complaint: Headache Stated Complaint: Head Pressure Time Seen by Provider: 05/05/24 01:37 Mode of arrival: EMS History of Present Illness HPI Narrative: 88-year-old male with history of COPD, has recent cough and headache symptoms, with some mild shortness of breath, uses inhalers at home, no chronic steroid. He denies chest discomfort. He has had chronic neck pain, for which he uses tramadol, has posterior headache without trauma. No focal weakness to face arm or leg. No focal numbness to face arm or leg. No photophobia. He also has had some discharge from both eyes. No history known of close contacts to persons with recent respiratory illness symptoms. Related Data Home Medications Medication Instructions Recorded Confirmed albuterol sulfate 90 mcg/actuation 2 puff INH ##0 09/18/16 03/23/24 aerosol inhaler (Ventolin HFA) fluticasone 100 mcg-salmeterol 50 1 puff BID ##0 09/18/16 03/23/24 mcg/dose blistr powdr for inhalation (Advair Diskus) hydrochlorothiazide 25 mg tablet 25 mg PO QDAY ##0 09/18/16 03/23/24 tiotropium bromide 18 mcg capsule 18 mcg RT 0600 ##0 09/18/16 03/23/24 with inhalation device (Spiriva with HandiHaler) trazodone 50 mg tablet 50 mg PO BEDTIME 07/30/22 03/23/24 allopurinol 100 mg tablet 100 mg PO DAILY 08/20/22 03/23/24 losartan 100 mg tablet 100 mg PO DAILY 04/29/23 03/23/24 tamsulosin 0.4 mg capsule 0.4 mg PO DAILY 04/29/23 03/23/24 ipratropium 0.5 mg-albuterol 3 mg 1.5 ml inhalation ONCE PRN 08/21/23 03/23/24 (2.5 mg base)/3 mL nebulization soln rosuvastatin 10 mg tablet 10 mg PO ONCE PM 08/21/23 03/23/24 hydralazine 50 mg tablet 50 mg PO BID 02/03/24 03/23/24 metoprolol succinate 50 mg 50 mg PO DAILY 02/03/24 03/23/24 tablet,extended release 24 hr Previous Rx's Medication Instructions Recorded ondansetron 4 mg disintegrating 4 mg PO Q8H PRN nausea and 12/31/23 tablet vomiting #10 tabs piroxicam 20 mg capsule (Feldene) 20 mg PO DAILY #30 caps 03/23/24 tramadol 50 mg tablet 50 mg PO BID PRN pain #42 tabs 03/23/24 azithromycin 250 mg tablet See Rx Instructions PO .COMPLEX #6 05/05/24 tabs cefdinir 300 mg capsule 300 mg PO BID 10 days #20 caps 05/05/24 erythromycin 5 mg/gram (0.5 %) eye 1 applic EYE-BOTH TID eye 05/05/24 ointment infection 7 days #3.5 grams Allergies Allergy/AdvReac Type Severity Reaction Status Date / Time No Known Drug Allergies Allergy Verified 03/23/24 13:16 Patient History Medical History Biceps tendonitis on right Cervical radiculopathy Cervical spondylosis Facet arthritis of cervical region History of malignant neoplasm of prostate Neck pain Post-void dribbling Right shoulder pain Shoulder impingement Subacromial bursitis Social History Smoking Status: Former smoker Smoking Status: Former smoker Alcohol type: wine Exam Narrative Exam Narrative: GENERAL:Well-developed patient, in mild distress. HEAD: Atraumatic. Normocephalic. EYES: Pupils equal round and reactive. Extraocular motions intact. No scleral icterus. No scleral injection but some bilateral white-yellow exudates conjunctival ENT: Nose without bleeding, purulent drainage. Throat without erythema, tonsillar hypertrophy or exudate. Airway patent. NECK: Trachea midline. Non tender CARDIOVASCULAR: Regular rate and rhythm without murmurs, gallops, or rubs. RESPIRATORY: Clear to auscultation. Breath sounds equal bilaterally. No wheezes, rales, or rhonchi. No respiratory distress, speaks in full sentences, normal oxygenation on room air. GASTROINTESTINAL: Abdomen soft, non-tender, nondistended. EXTREMITIES: No edema or joint tenderness. BACK: Nontender without deformity or crepitance. No flank tenderness. NEURO: AOx3. Motor functions grossly nonfocal SKIN: No rash or erythema of visible areas Initial Vital Signs Initial Vital Signs: Vital Signs Temperature 98.8 F 05/05/24 01:16 Pulse Rate 76 01/28/25 01:16 Respiratory Rate 17 05/05/24 01:16 Blood Pressure 156/82 H 05/05/24 01:16 Pulse Oximetry 95 05/05/24 01:16 Oxygen Delivery Method Room Air 05/05/24 01:16 Course Orders Ordered: Discontinued Medications Albuterol/Ipratropium (Albuterol/Ipratropium 3 Ml Ampul) 3 ml INH NOW ONE Stop: 05/05/24 03:10 Last Admin: 05/05/24 03:21 Dose: 3 ml Documented By: REBECCA Azithromycin (Azithromycin 250 Mg Tablet) 500 mg PO NOW ONE Stop: 05/05/24 02:51 Last Admin: 05/05/24 03:20 Dose: 500 mg Documented By: REBECCA Cefdinir (Cefdinir 300 Mg Capsule) 300 mg PO NOW ONE Stop: 05/05/24 03:10 Last Admin: 05/05/24 03:20 Dose: 300 mg Documented By: REBECCA Erythromycin (Erythromycin Ophth 1 Gm Oint) 1 applic EYE-BOTH NOW ONE Stop: 05/05/24 03:15 Last Admin: 05/05/24 03:21 Dose: 1 applic Documented By: REBECCA Ceftriaxone Sodium 1,000 mg/ (Sodium Chloride) 100 mls @ 200 mls/hr IV NOW ONE Stop: 05/05/24 02:51 Last Admin: 05/05/24 03:19 Dose: Not Given Documented By: REBECCA Tramadol HCl (Tramadol 50 Mg Tablet) 50 mg PO NOW ONE Stop: 05/05/24 03:14 Last Admin: 05/05/24 03:21 Dose: 50 mg Documented By: REBECCA Vital Signs Vital signs: Vital Signs - 8 hr 05/05/24 01:16 05/05/24 02:05 05/05/24 02:30 Temperature 98.8 F Pulse Rate 76 75 77 Respiratory Rate 17 24 17 Blood Pressure 156/82 H Pulse Oximetry 95 93 93 Oxygen Delivery Method Room Air 05/05/24 02:31 05/05/24 02:31 05/05/24 03:00 Temperature Pulse Rate 75 74 Respiratory Rate 19 15 Blood Pressure 165/68 H Pulse Oximetry 93 93 Oxygen Delivery Method 05/05/24 03:01 05/05/24 03:01 05/05/24 03:30 Temperature Pulse Rate 73 77 Respiratory Rate 18 20 Blood Pressure 160/69 H Pulse Oximetry 93 98 Oxygen Delivery Method 05/05/24 03:31 05/05/24 03:31 05/05/24 03:54 Temperature Pulse Rate 79 80 Respiratory Rate 24 16 Blood Pressure 148/103 H 143/70 H Pulse Oximetry 98 92 Oxygen Delivery Method 05/05/24 03:54 05/05/24 04:00 05/05/24 04:00 Temperature Pulse Rate 79 78 Respiratory Rate 57 H 17 Blood Pressure 145/74 H Pulse Oximetry 94 92 Oxygen Delivery Method MDM - Headache Lab Data Attestation: I reviewed the patient's lab results. Lab results narrative: COVID, flu, RSV swab negative. Urine dip negative. Labs: Lab Results 05/05/24 Range/Units 01:28 SARS-CoV-2 (PCR) Negative (Negative) Influenza A (RT-PCR) Flu a negative (NEGATIVE) Influenza B (RT-PCR) Flu b negative (NEGATIVE) RSV (PCR) Negative (Negative) Urine Dip Bedside Urine Glucose Negative Bedside Urine Bilirubin - Negative Bedside Urine Ketone - Negative Urine Specific [place] 1.010 Bedside Urine Occult Blood - Negative Bedside Urine pH 6.5 Bedside Urine Protein - Negative Bedside Urine Urobilinogen - Negative Bedside Urine Nitrite - Negative Bedside Urine Leukocytes - Negative Esterase ECG Data Attestation: I personally reviewed and interpreted this ECG as follows: Interpretation: Normal sinus rhythm with rate of 72, no obvious ST segment elevation or depression changes. Incomplete right bundle branch block noted. TN 172, QRS 108, QTC 427. [facility] Narrative Medical decision making narrative: 88-year-old male with recent cough, history of COPD, no wheeze, mild shortness of breath, speaking in full sentences, normal oxygenation on room air, no lower extremity edema or obvious fluid overload. Some conjunctival exudate both eyes. Some associated headache. No injury or trauma. Unremarkable neuro exam. Hold on CT head imaging. COVID/flu swab pending, chest x-ray pending. COVID/flu/RSV swab negative. Chest x-ray single view. Impression: ?Bilateral pulmonary infiltrates. Follow up chest radiograph after appropriate treatment to document resolution.? See teleradiology report Oral dose Amox and Doxy for community acquired mentioned on CXR, no tacypnea, SIRS screen negative, no hypoxia. Treat as outpatient for now. Chronic neck pain, he would like a dose of his tramadol, oral dose tramadol ordered. 0400, patient was initially amenable to going home, now would like blood work that was not previously sent. Blood work ordered. Await results. 0445, patient able to ambulate to the bathroom per nursing. Again changed his mind, now declines any bloodwork, wants to go home on oral antibitocs as previously discssued, home with . Rx sent to pharmacy for further Amox/Doxy antibiotic course. Return precautions discussed. No known drug/antibiotic allergies. We will give oral cefdinir and oral azithromycin 1st dose now, further prescriptions to be sent to pharmacy for pneumonia treatment. He has inhalers. No wheezing, we will hold off on steroids for now. Consider recheck in clinic next 2-3 days. Return precautions discussed. Home with family. Discharge Plan Departure Patient Disposition: Home Clinical Impression: Pneumonia, Headache, Conjunctivitis Instructions: DI for Pneumonia -- Adult, DI for Headache Activity Restrictions/Additional Instructions: History of COPD, recent cough and headache symptoms. Recent neck pain for which you are taking tramadol. No injury or trauma to suggest need for CT head imaging tonight. Recent cough noted. Swab for COVID/RSV/influenza negative. Chest x-ray however did show bilateral lower infiltrates, suggestive of pneumonia. Your pneumonia illness maybe causing your headache as well. Normal oxygenation. Normal blood pressure and pulse range. No indications for pneumonia admission at this time, however we would like to antibacterial antibiotics. First dose of cefdinir and azithromycin antibiotics given in the emergency department, further courses of oral antibiotics sent to your pharmacy. Take antibiotic prescriptions as directed. Continue use of your home inhaler regimen for your COPD. No wheezing or oxygen requirement, no steroids prescribed for now. Conjunctivitis also noted on examination, which might respond nicely to the oral antibiotics, however topical erythromycin antibiotic additionally provided, 1 application small ribbon to each eye 3 times daily for the next few days additionally advised, 1st application in the emergency department, tube dispensed, further antibiotic ointment prescription sent to your pharmacy. Consider recheck by your regular provider in the next couple of days. Return to this/nearest emergency department for any change worsening symptoms or any concerns prior Prescriptions: New cefdinir 300 mg capsule 300 mg PO BID 10 Days Qty: 20 0RF azithromycin 250 mg tablet See Rx Instructions PO .COMPLEX Qty: 6 0RF Rx Instructions: For 250 mg dose pack: take 500 mg today (day 1), then 250 mg for 4 days (days 2-5) erythromycin 5 mg/gram (0.5 %) ointment 1 applic EYE-BOTH TID 7 Days Qty: 3.5 0RF No Action hydrochlorothiazide 25 MG tablet 25 mg PO QDAY Qty: 0 fluticasone propion-salmeterol [Advair Diskus] 100 MCG/50 MCG blister with device 1 puff BID Qty: 0 albuterol sulfate [Ventolin HFA] 90 MCG/PUFF HFA aerosol inhaler 2 puff INH Qty: 0 tiotropium bromide [Spiriva with HandiHaler] 18 MCG capsule, w/inhalation device 18 mcg RT 0600 Qty: 0 ondansetron 4 mg tablet,disintegrating 4 mg PO Q8H PRN (Reason: nausea and vomiting) Qty: 10 0RF trazodone 50 mg tablet 50 mg PO BEDTIME Patient Comments: take 1 tablet by mouth at bedtime if needed allopurinol 100 mg tablet 100 mg PO DAILY tamsulosin 0.4 mg capsule 0.4 mg PO DAILY losartan 100 mg tablet 100 mg PO DAILY rosuvastatin 10 mg tablet 10 mg PO ONCE PM ipratropium-albuterol 0.5 mg-3 mg(2.5 mg base)/3 mL solution for nebulization 1.5 ml inhalation ONCE PRN piroxicam [Feldene] 20 mg capsule 20 mg PO DAILY Qty: 30 2RF tramadol 50 mg tablet 50 mg PO BID PRN (Reason: pain) Qty: 42 1RF hydralazine 50 mg tablet 50 mg PO BID metoprolol succinate 50 mg tablet extended release 24 hr 50 mg PO DAILY Referrals: Georgina Larsen PA-C [Primary Care Provider] - Stand Alone Forms: Patient Portal/API/Survey
[2024-05-05 02:29] LABS: COVID-19 CEPHEID 4-PLEX PCR Negative (Negative)
[2024-05-05] MEDS: CEFDINIR 300 MG CAPSULE PO (03:20)
[2024-05-05] MEDS: AZITHROMYCIN 250 MG TABLET 500 MG PO (03:20)
--- NOTE | 2024-05-05 03:20 | PC.NURSE ---
nebulizer given as per orders
[2024-05-05] MEDS: ALBUTEROL/IPRATROPIUM 3 ML AMPUL INH (03:21)
[2024-05-05] MEDS: TRAMADOL 50 MG TABLET PO (03:21)
[2024-05-05] MEDS: ERYTHROMYCIN OPHTH 1 GM OINT 1 APPLIC EYE-BOTH (03:21)
--- NOTE | 2024-05-05 03:42 | PC.NURSE ---
pt wanting to see Dr Real again before leaving Dr Real informed. explained to pt that it would be awhile before the doctor could get back in the room to see him as he was seeing other patients but his dc papers were printed, pt stated no he wanted to see Dr Real before leaving
--- NOTE | 2024-05-05 04:45 | PC.NURSE ---
Dr Real in to speak with pt, per Dr Real pt told him that he had difficulty walking, explained to Dr Real that pt had been walking to the bathroom and back without difficulty, pt now requesting lab work and possible admission to the hospital.
--- NOTE | 2024-05-05 05:30 | PC.NURSE ---
pt decided they no longer wanted to have any blood work done and wanted to be dc, Dr Real informed
== END 2024-05-05 06:02 | disposition home or self-care (01) ==
PROVIDERS: Emergency Provider Emergency Medicine; PCP Physician Assistant
DX: J18.9 Pneumonia, unspecified organism (principal); R51.9 Headache, unspecified; H10.9 Unspecified conjunctivitis; R06.02 Shortness of breath; J44.9 Chronic obstructive pulmonary disease, unspecified; I45.10 Unspecified right bundle-branch block; R07.9 Chest pain, unspecified
CPT/HCPCS: 0241U; 71045; 81003; 93005; 99284

== ENCOUNTER → 2024-06-05 13:32 | Outpatient (CLI) | payer MEDICARE, SELFPAY ==
--- NOTE | 2024-06-05 16:41 | DI.MRI.S_ITS ---
PROCEDURE: MR CERVICAL SPINE WO CON INDICATIONS: cervical spinal stenosis TECHNIQUE: Noncontrast sagittal T1 spin echo and T2 fast spin echo, sagittal STIR, foraminal oblique sagittal T2 fast spin echo, and axial gradient echo or T2 fast spin echo through the cervical spine. COMPARISON: [facility], MR, MR CERVICAL SPINE WO CON, 07/24/2022, 9:20. FINDINGS: Image quality: Excellent. Alignment and Curvature: There is straightening of normal cervical lordosis. 3 mm anterolisthesis of C6 on C7 is seen. Partial bony union involving posterior aspect of C3 and C4 vertebral bodies are noted. No gross marrow edema. Bone Marrow: Marrow demonstrates normal overall signal. Spinal Cord: Visualized spinal cord has normal size and signal. No cerebellar tonsillar herniation. Paraspinous Soft Tissues: No paravertebral masses. Prevertebral soft tissues are normal in thickness. C2-C3: There is disc desiccation. Diffuse disc bulge and bilateral uncovertebral hypertrophic changes are seen. No significant central canal stenosis or neural foraminal narrowing. C3-C4: Partial bony fusion at C3-4 level. Dorsal disc osteophyte complex formation and bilateral uncovertebral hypertrophic changes are seen causing [id number] central canal stenosis, moderate to severe left-sided neural foraminal narrowing. C4-C5: Loss of disc height and disc desiccation. Broad-based, more right-sided disc bulge and bilateral uncovertebral hypertrophic changes are seen causing mild central canal stenosis, [id number] right-sided neural foraminal narrowing and mild left-sided neural foraminal narrowing. C5-C6: Disc desiccation and loss of disc height. Broad-based disc bulge and bilateral uncovertebral hypertrophic changes are seen with superimposed central to right-sided disc herniation and extrusion. There is moderate central canal stenosis, moderate to severe left-sided neural foraminal narrowing and severe right-sided neural narrowing. Bulging disc is seen contacting bilateral C6 nerve roots. C6-C7: Loss of disc height and disc desiccation. Broad-based disc bulge and bilateral uncovertebral hypertrophic changes are seen causing [id number] central canal stenosis, moderate right-sided neural foraminal narrowing and mild left-sided neural foraminal narrowing. C7-T1: Normal appearance. IMPRESSION: 1. Straightening of normal cervical lordosis. 3 mm anterolisthesis of C6 on C7. No marrow edema. No acute fracture or dislocation. Partial bony union involving posterior aspect of C3-4 level. 2. No abnormal cervical spinal cord signal. No Chiari malformation. 3. Spondylitic changes throughout cervical spine causing various degrees of central canal stenosis and bilateral neural foraminal narrowing more notably at C4-5 through C6-7 levels as described above. Overall finding has progressed compared to 2022 study. Dictated by: Blane Khan M.D. on 06/05/2024 at 16:52 Approved by: Blane Khan M.D. on 06/05/2024 at 16:59
== END ==
PROVIDERS: PCP Physician Assistant; Referring Provider Physician Assistant Surgical; Visit Provider Physician Assistant Surgical
DX: M48.02 Spinal stenosis, cervical region (principal); M47.812 Spondylosis without myelopathy or radiculopathy, cervical region; M43.12 Spondylolisthesis, cervical region; M43.22 Fusion of spine, cervical region; R26.81 Unsteadiness on feet
CPT/HCPCS: 72141

== ENCOUNTER 2024-06-29 19:31 | Emergency (ER) | payer MEDICARE, SELFPAY ==
[2024-06-29] VITALS (14 sets, daily range): BP systolic 145–194; BP diastolic 66–85; PULSE 70–81; RESP 17–21; TEMP 36.1; O2SAT 90–96; BMI 32.0
--- NOTE | 2024-06-29 21:04 | DI.CT.S_ITS ---
PROCEDURE: CT SOFT TISSUE NECK W CON INDICATIONS: swelling neck, lump right ? ludwigs vs other TECHNIQUE: After the administration of intravenous contrast, 3.0 mm axial sections acquired from the sella to the aortic arch. Additional oblique axial 3.0 mm sections acquired through the pharynx. 3 mm thick coronal and sagittal reformats were generated. For radiation dose reduction, the following was used: automated exposure control. COMPARISON: [facility], MR, MR CERVICAL SPINE WO CON, 06/05/2024, 13:52. FINDINGS: Image quality: Diagnostic Lymph nodes: No pathologically enlarged lymph nodes seen throughout the neck. Vessels: Visualized vasculature appears patent. Neck spaces: The oropharynx, nasopharynx, and pharynx demonstrate no mucosal lesions. The vocal cords, false vocal cords, pyriform sinuses, epiglottis, vallecula, and tongue base all appear normal. Extramucosal spaces appear unremarkable. Glands: There is moderate asymmetric enlargement of the right submandibular gland with associated inflammatory stranding and mild overlying subcutaneous soft tissue stranding and skin thickening. Left submandibular gland appears unremarkable. The parotid glands appear unremarkable. Thyroid gland is unremarkable in appearance. Miscellaneous: Visualized brain and orbits appear normal. Lung apices appear clear. Superficial soft tissues appear normal. Bones: No suspicious bony lesions. No acute compression fractures. Advanced multilevel cervical spondylosis. Visualized sinuses and mastoids appear unremarkable. IMPRESSION: Moderate asymmetric enlargement of the right submandibular gland relative to the left side. There is mild surrounding subcutaneous stranding as well as mild overlying skin thickening. Recommend clinical correlation for associated skin changes of possible cellulitis. Findings may be reactive in etiology. No focal mass lesion or adenopathy identified in the region. Dictated by: Jose G Demarco M.D. on 06/29/2024 at 22:47 Approved by: Jose G Demarco M.D. on 06/29/2024 at 22:52
--- NOTE | 2024-06-29 21:04 | ED.NECK ---
HPI - Neck Pain/Injury General Chief Complaint: Neck Pain/Injury Stated Complaint: neck swelling and px Time Seen by Provider: 06/29/24 21:04 Source: patient, RN notes reviewed and old records reviewed Mode of arrival: Ambulatory Limitations: no limitations History of Present Illness HPI Narrative: 88-year-old male history of hypertension, COPD, CKD who presents with complaint of swelling of his neck particularly on the right side which has progressed throughout the day noticed it earlier this morning/noon time. States it is gotten worse as the days gone by. He denies fevers or chills he denies any difficulty with breathing states his voice has a raspy compared to his normal. He denies any stridor. No difficulty with swallowing. He states no swelling in his tongue he does not feel like it is pushed upwards, patient states he does not feel like his airway has not any impingement. States tender and there is a lot more in the right side but swelling is now on both sides. He denies any chest pain or pressure. No nausea or vomiting. No other GI or urinary symptoms. Patient has not had similar changes in the past. No recent cuts or injuries to that area has not had any prior lung or throat or neck cancer. He was a former smoker, he does drink alcohol, no recreational drugs. He denies any drug allergies. Georgina Larsen is his primary care. Related Data Home Medications Medication Instructions Recorded Confirmed albuterol sulfate 90 mcg/actuation 2 puff INH ##0 09/18/16 05/18/24 aerosol inhaler (Ventolin HFA) hydrochlorothiazide 25 mg tablet 25 mg PO QDAY ##0 09/18/16 05/18/24 tiotropium bromide 18 mcg capsule 18 mcg RT 0600 ##0 09/18/16 05/18/24 with inhalation device (Spiriva with HandiHaler) trazodone 50 mg tablet 50 mg PO BEDTIME 07/30/22 05/18/24 allopurinol 100 mg tablet 100 mg PO DAILY 08/20/22 05/18/24 losartan 100 mg tablet 100 mg PO DAILY 04/29/23 05/18/24 tamsulosin 0.4 mg capsule 0.4 mg PO DAILY 04/29/23 05/18/24 rosuvastatin 10 mg tablet 10 mg PO ONCE PM 08/21/23 05/18/24 metoprolol succinate 50 mg 50 mg PO DAILY 02/03/24 05/18/24 tablet,extended release 24 hr cefdinir 300 mg capsule 300 mg PO DAILY 05/18/24 05/18/24 erythromycin 5 mg/gram (0.5 %) eye 0.5 inch EYE-BOTH DAILY 05/18/24 05/18/24 ointment fluticasone 500 mcg-salmeterol 50 inhalation 05/18/24 05/18/24 mcg/dose blistr powdr for inhalation furosemide 20 mg tablet 20 mg PO DAILY 05/18/24 05/18/24 hydralazine 100 mg tablet 100 mg PO 3XD 05/18/24 05/18/24 ipratropium 20 mcg-albuterol 100 2 puff inhalation 4XD PRN 05/18/24 05/18/24 mcg/actuation mist for inhalation (Combivent Respimat) Previous Rx's Medication Instructions Recorded ondansetron 4 mg disintegrating 4 mg PO Q8H PRN nausea and 12/31/23 tablet vomiting #10 tabs tramadol 50 mg tablet 50 mg PO BID PRN pain #60 tabs 05/18/24 amoxicillin 875 mg-potassium 1 tab PO BID #20 tabs 06/29/24 clavulanate 125 mg tablet prednisone 10 mg tablets in a dose See Rx Instructions PO .COMPLEX 06/29/24 pack #21 ea Allergies Allergy/AdvReac Type Severity Reaction Status Date / Time No Known Drug Allergies Allergy Verified 06/29/24 19:34 Review of Systems Review of Systems ROS Unobtainable: All systems reviewed & are unremarkable except as noted in HPI and below Patient History Medical History Cervical radiculopathy Facet arthritis of cervical region Post-void dribbling History of malignant neoplasm of prostate Biceps tendonitis on right Cervical spondylosis Subacromial bursitis Shoulder impingement Neck pain Right shoulder pain Social History Smoking Status: Former smoker Smoking Status: Former smoker Alcohol type: wine Exam Narrative Exam Narrative: GEN: Obese elderly male, alert and oriented x 3, patient appears to be in mild distress. HEENT: Atraumatic, pupils are equal round reactive to light, extraocular movements are intact, nares are clear, TMs are clear with no fluid, there is no conjunctival pallor. Throat is clear without any exudates, erythema, tonsillar enlargement or uvular deviation, patient has swelling right greater than left of his neck underneath the mandibular region he was got some mild erythema, patient has a little bit of large neck body habitus but he clearly has some swelling there some fullness and feels like almost a palpable node or mass that is 1 or 2 cm on the right. Patient has maybe some mild hoarseness but no stridor no muffled voice, he was lying at about 20? in the bed with no difficulty with breathing. No difficulty with secretions. HEART: Regular rate and rhythm without murmur, clicks, rubs. No carotid bruits, pulses are equal in upper and lower extremities LUNGS:Lungs clear to auscultation, no wheezes, rales, crackles, chest moves symmetrically ABD:bowel sounds normal, soft, non-tender, no guarding, rebound, rigidity, no masses noted, no hepatosplenomegaly MSCL: Non-tender, no muscle atrophy, muscles strength 5/5 upper and lower extremities, full range of motion, normal gait NEURO:CN 2-12 intact, sensation normal Initial Vital Signs Initial Vital Signs: Vital Signs Temperature 97.0 F L 06/29/24 19:34 Pulse Rate 74 06/29/24 19:34 Respiratory Rate 17 06/29/24 19:34 Blood Pressure 176/75 H 06/29/24 19:34 Pulse Oximetry 95 06/29/24 19:34 Oxygen Delivery Method Room Air 06/29/24 19:34 Course Orders Ordered: ED Orders 06/29/24 21:00 Complete Blood Count AUTO DIFF Stat Comprehensive Metabolic Panel Stat Lactate (Lactic Acid) Stat Procalcitonin Stat 06/29/24 21:04 CT soft tissue neck w con Stat 06/29/24 21:15 Blood Culture Stat Discontinued Medications Acetaminophen (Acetaminophen 325 Mg Tablet) 975 mg PO NOW ONE Stop: 06/29/24 22:49 Last Admin: 06/29/24 22:55 Dose: 975 mg Documented By: MARK ANTHONY Ampicillin Sodium/Sulbactam (Sodium 3 gm/ Sodium Chloride) 100 mls @ 200 mls/hr IV NOW ONE Stop: 06/29/24 21:05 Last Infusion: 06/29/24 22:50 Dose: Infused Documented By: MARK ANTHONY Admin: 06/29/24 21:36 Dose: 200 mls/hr Documented By: MARK ANTHONY Sodium Chloride (Normal Saline 0.9%) 1,000 mls @ 1,000 mls/hr IV BOLUS ONE Stop: 06/29/24 22:03 Last Infusion: 06/29/24 22:05 Dose: Infused Documented By: MARK ANTHONY Admin: 06/29/24 21:24 Dose: 1,000 mls/hr Documented By: MARK ANTHONY Dexamethasone 20 mg/ Sodium (Chloride) 52 mls @ 104 mls/hr IV NOW ONE Stop: 06/29/24 21:59 Last Infusion: 06/29/24 22:05 Dose: Infused Documented By: MARK ANTHONY Admin: 06/29/24 21:27 Dose: 104 mls/hr Documented By: MARK ANTHONY Vital Signs Vital signs: Vital Signs - 8 hr 06/29/24 19:34 06/29/24 20:51 06/29/24 20:52 Temperature 97.0 F L Pulse Rate 74 81 76 Respiratory Rate 17 Blood Pressure 176/75 H Pulse Oximetry 95 90 L 93 Oxygen Delivery Method Room Air 06/29/24 20:52 06/29/24 21:00 06/29/24 21:01 Temperature Pulse Rate 72 Respiratory Rate Blood Pressure 194/85 H 184/77 H Pulse Oximetry 96 Oxygen Delivery Method 06/29/24 21:01 06/29/24 21:30 06/29/24 21:31 Temperature Pulse Rate 75 71 70 Respiratory Rate Blood Pressure Pulse Oximetry 96 94 94 Oxygen Delivery Method 06/29/24 21:31 06/29/24 22:06 06/29/24 22:07 Temperature Pulse Rate 80 80 Respiratory Rate Blood Pressure 172/72 H Pulse Oximetry 96 96 Oxygen Delivery Method 06/29/24 22:07 06/29/24 22:30 06/29/24 22:31 Temperature Pulse Rate 77 79 Respiratory Rate 21 21 Blood Pressure 156/70 H Pulse Oximetry 94 94 Oxygen Delivery Method 06/29/24 22:31 06/29/24 23:00 06/29/24 23:01 Temperature Pulse Rate 77 75 Respiratory Rate 20 19 Blood Pressure 145/67 H Pulse Oximetry 94 95 Oxygen Delivery Method 06/29/24 23:01 06/29/24 23:30 06/29/24 23:30 Temperature Pulse Rate 73 Respiratory Rate 18 Blood Pressure 148/79 H 145/66 H Pulse Oximetry 91 Oxygen Delivery Method MDM - Neck Pain/Injury Lab Data 06/29/24 21:00 06/29/24 21:00 Labs: Lab Results 06/29/24 Range/Units 21:00 WBC 6.9 (4.5-11.0) X10^3/uL RBC 3.28 L (4.5-5.9) X10^6/uL Hgb 11.5 L (13.5-17.5) g/dL Hct 33.7 L (41-53) % MCV 102.8 H (80-100) fL MCH 34.9 H (26-34) PG MCHC 34.0 (30-36) % RDW 13.0 (11.6-14.8) % Plt Count 146 L (150-400) X10^3/uL Neut % (Auto) 82.5 H (50-75) % Lymph % (Auto) 7.2 L (25-40) % [facility] % (Auto) 8.0 (3-14) % Eos % (Auto) 1.9 L (2-4) % Baso % (Auto) 0.4 (0-2) % Neut # (Auto) 5700 (7362-9303) /uL Lymph # (Auto) 500 L (9157-1415) /uL [facility] # (Auto) 600 (0-900) /uL Eos # (Auto) 100 (0-450) /uL Baso # (Auto) 0 (0-100) /uL Sodium 132 L (137-145) mmol/L Potassium 4.9 (3.4-5.1) mmol/L Chloride 101 (98-107) mmol/L Carbon Dioxide 21 L (22-32) mmol/L BUN 37 H (9-20) mg/dL Creatinine 1.77 H (0.66-1.25) mg/dL Estimated GFR 36 L (>60) mL/min BUN/Creatinine Ratio 20.9 (6-22) Glucose 106 (80-110) mg/dL Lactate 0.9 (0.7-2.1) mmol/L Calcium 9.8 (8.4-10.2) mg/dL Total Bilirubin 0.8 (0.2-1.3) mg/dL AST 28 (17-59) IU/L ALT 19 (<50) IU/L Alkaline Phosphatase 62 (38-126) U/L Total Protein 7.1 (6.3-8.2) g/dL Albumin 4.3 (3.5-5.0) g/dL Globulin 2.8 (1.7-4.1) g/dL Albumin/Globulin Ratio 1.5 (1.0-2.8) Procalcitonin 0.087 (<0.5) ng/mL [facility] Narrative Medical decision making narrative: 88-year-old male with swelling of the right neck coming underneath patient states has worsened throughout the day does have quite a bit of swelling concern for potential Joseph angina versus retropharyngeal abscess, versus mass or other discussed with patient he does not appear to have any airway impingement but discussed that he was high-risk if it progresses and he was to let us know if he was notices any changes he was agreeable to intubation if necessary. Plan for labs, CT soft tissue neck with contrast steroids, fluids and antibiotics with close monitoring. Patient's is at bedside they both feel it has not progressed quickly while he has been here in the emergency department. Labs white count of 6.9, hemoglobin 11.5 patient is typically 12, platelets are 146 patient appears to run about 150s since 2017. Sodium is 132, patient's CO2 is 21 BUN 37 creatinine 1.77 patient has CKD is between 1.7 and 1.3, glucose is 106. Lactate 0.9 protocol 0.087. Blood cultures are pending. CT shows moderate asymmetric enlargement right submandibular gland relatives left side mild surrounding subcutaneous stranding as well as mild overlying skin thickening. Recommend clinical correlation for skin changes possible cellulitis no focal mass lesion or adenopathy identified in the region. Next spaces oropharynx, nasopharynx, pharynx demonstrate no mucosal lesions the vocal, false vocal cords, piriformis sinus, epiglottis, vallecula and tongue base all appear normal. Patient has received fluids, dexamethasone, Unasyn and acetaminophen. 2144: Rechecked patient states maybe some slight improvement definitely not any worsening. He states he is feeling well. 2248, rechecked patient is not having any worsening. He states no increasing swelling of the tongue airway does not feel like it is gone away in any way. Still awaiting CT imaging but reviewed his labs. Does have little bit of neck pain but he states it is more in the back of his neck from his arthritis he was open to having a dose of Tylenol he states he can swallow without issue. Spoke with Dr. Stock on-call for ENT at 232: Reviewed findings from today would recommend 10 days of Augmentin, Medrol Dosepak, sialogogue such as gums or lemon drops and close follow up with PCP for sialadenitis. Discussed findings with the patient he continues to feel well is not having any worsening appears to be has a little bit of improvement of his swelling in his neck. Tolerating secretions well that issues no major changes to his breathing. Reviewed all of his findings from today both he and his feel comfortable returning home, strict return precautions. Discussed recommendations including close follow up with PCP even if his redness and swelling have improved. Discharge Plan Departure Patient Disposition: Home Clinical Impression: Sialadenitis Activity Restrictions/Additional Instructions: Follow up with primary care in the next week for recheck even if your symptoms are improving. You have an infection of your submandibular gland appears to be causing some cellulitis or infection. Take oral antibiotics until completed. Take steroids until completed. Use sialagogues such as chewing gum or lemon candies to help encourage saliva production. Prescription sent to [facility] in [place]. Please return for fevers, worsening redness, swelling, any swelling or impingement of your airway, swelling of your tongue, difficulty with swallowing, new changes to her voice, vomiting, lightheadedness or passing out or other new or concerning changes. Prescriptions: New amoxicillin-pot clavulanate 875-125 mg tablet 1 tab PO BID Qty: 20 0RF prednisone 10 mg tablets,dose pack See Rx Instructions .ROUTE .COMPLEX Qty: 21 0RF Rx Instructions: 6 tabs p.o. x1 day, then 5 tabs p.o. x1 day, then 4 tablets p.o. x1 day, then 3 tabs p.o. x1 day, then 2 tabs p.o. x1 day, then 1 tab p.o. x1 day No Action hydrochlorothiazide 25 MG tablet 25 mg PO QDAY Qty: 0 albuterol sulfate [Ventolin HFA] 90 MCG/PUFF HFA aerosol inhaler 2 puff INH Qty: 0 tiotropium bromide [Spiriva with HandiHaler] 18 MCG capsule, w/inhalation device 18 mcg RT 0600 Qty: 0 ondansetron 4 mg tablet,disintegrating 4 mg PO Q8H PRN (Reason: nausea and vomiting) Qty: 10 0RF trazodone 50 mg tablet 50 mg PO BEDTIME Patient Comments: take 1 tablet by mouth at bedtime if needed allopurinol 100 mg tablet 100 mg PO DAILY tamsulosin 0.4 mg capsule 0.4 mg PO DAILY losartan 100 mg tablet 100 mg PO DAILY rosuvastatin 10 mg tablet 10 mg PO ONCE PM metoprolol succinate 50 mg tablet extended release 24 hr 50 mg PO DAILY cefdinir 300 mg capsule 300 mg PO DAILY erythromycin 5 mg/gram (0.5 %) ointment 0.5 inch EYE-BOTH DAILY Patient Comments: [NO ORIGINAL SIG] Combivent Respimat 20-100 mcg/actuation mist 2 puff inhalation 4XD PRN fluticasone propion-salmeterol 500-50 mcg/dose blister with device inhalation Patient Comments: [NO ORIGINAL SIG] hydralazine 100 mg tablet 100 mg PO 3XD furosemide 20 mg tablet 20 mg PO DAILY tramadol 50 mg tablet 50 mg PO BID PRN (Reason: pain) Qty: 60 3RF Referrals: Georgina Larsen PA-C [Primary Care Provider] - Stand Alone Forms: Patient Portal/API/Survey
[2024-06-29 21:12] LABS: Add Manual Diff / Slide Review NO; Basophils Absolute Auto 0 /uL (0-100); Basophils Percent Auto 0.4 % (0-2); Eosinophils Absolute Auto 100 /uL (0-450); Eosinophils Percent Auto 1.9 % (2-4); Hematocrit 33.7 % (41-53); Hemoglobin 11.5 g/dL (13.5-17.5); Lymphocytes Absolute Auto 500 /uL (1100-4500); Lymphocytes Percent Auto 7.2 % (25-40); Mean Corpuscular Hemoglobin 34.9 PG (26-34); Mean Corpuscular Volume 102.8 fL (80-100); Monocytes Absolute Auto 600 /uL (0-900); Neutrophils Absolute Auto 5700 /uL (1500-7000); Neutrophils Percent Auto 82.5 % (50-75); Platelet Count 146 X10^3/uL (150-400); Red Blood Cell Count 3.28 X10^6/uL (4.5-5.9); White Blood Cell Count 6.9 X10^3/uL (4.5-11.0)
[2024-06-29 21:23] LABS: Lactate (Lactic Acid) 0.9 mmol/L (0.7-2.1)
[2024-06-29 21:24] LABS: Alanine Aminotransferase 19 IU/L (<50); Albumin 4.3 g/dL (3.5-5.0); Albumin Globulin Ratio 1.5 (1.0-2.8); Alkaline Phosphatase 62 U/L (38-126); Aspartate Aminotransferase 28 IU/L (17-59); BUN Creatinine Ratio 20.9 (6-22); Bilirubin Total 0.8 mg/dL (0.2-1.3); Blood Urea Nitrogen 37 mg/dL (9-20); Calcium 9.8 mg/dL (8.4-10.2); Carbon Dioxide 21 mmol/L (22-32); Chloride 101 mmol/L (98-107); Estimated Glomerular Filt Rate 36 mL/min (>60); Globulin 2.8 g/dL (1.7-4.1); Glucose 106 mg/dL (80-110); HEMOLYSIS < 15 (0-50); Potassium 4.9 mmol/L (3.4-5.1); Sodium 132 mmol/L (137-145); Total Protein 7.1 g/dL (6.3-8.2)
[2024-06-29] MEDS: SODIUM CHLORIDE 0.9% 1,000 ML 1000 ML IV (21:24)
[2024-06-29] MEDS: dexAMETHasone 20 MG in SODIUM CHLORIDE 0.9% 50 ML 104 MG IV (21:27)
[2024-06-29] MEDS: AMPICILLIN/SULBACTAM 3 GM 3 GM in SODIUM CHLORIDE 0.9% 100 ML IV (21:36)
[2024-06-29 21:40] LABS: Procalcitonin 0.087 ng/mL (<0.5)
[2024-06-29] MEDS: ACETAMINOPHEN 325 MG TABLET 975 MG PO (22:55)
== END 2024-06-29 23:58 | disposition home or self-care (01) ==
PROVIDERS: Emergency Provider Emergency Medicine; PCP Physician Assistant
DX: K11.20 Sialoadenitis, unspecified (principal); Z87.891 Personal history of nicotine dependence
CPT/HCPCS: 36415; 70491; 80053; 83605; 84145; 85025; 87040; 96365; 96368; 99284; J0295; J1100; Q9967

== ENCOUNTER 2024-07-24 14:47 | Emergency (ER) | payer MEDICARE, SELFPAY ==
[2024-07-24 14:54] VITALS: BP 138/64; PULSE 70; RESP 18; TEMP 36.2; O2SAT 95; BMI 32.3
[2024-07-24 15:27] LABS: Add Manual Diff / Slide Review NO; Basophils Absolute Auto 0 /uL (0-100); Basophils Percent Auto 0.8 % (0-2); Eosinophils Absolute Auto 100 /uL (0-450); Eosinophils Percent Auto 2.7 % (2-4); Hematocrit 32.9 % (41-53); Hemoglobin 11.5 g/dL (13.5-17.5); Lymphocytes Absolute Auto 600 /uL (1100-4500); Lymphocytes Percent Auto 14.4 % (25-40); Mean Corpuscular HGB Conc 35.1 % (30-36); Mean Corpuscular Volume 102.3 fL (80-100); Monocytes Absolute Auto 400 /uL (0-900); Monocytes Percent Auto 9.2 % (3-14); Neutrophils Absolute Auto 2900 /uL (1500-7000); Neutrophils Percent Auto 72.9 % (50-75); Platelet Count 135 X10^3/uL (150-400); Red Blood Cell Count 3.21 X10^6/uL (4.5-5.9); Red Cell Distribution Width 13.9 % (11.6-14.8)
[2024-07-24 15:31] LABS: Alanine Aminotransferase 18 IU/L (<50); Albumin 4.2 g/dL (3.5-5.0); Albumin Globulin Ratio 1.6 (1.0-2.8); Alkaline Phosphatase 61 U/L (38-126); Aspartate Aminotransferase 25 IU/L (17-59); BUN Creatinine Ratio 25.7 (6-22); Bilirubin Total 0.8 mg/dL (0.2-1.3); Blood Urea Nitrogen 63 mg/dL (9-20); Calcium 9.6 mg/dL (8.4-10.2); Carbon Dioxide 28 mmol/L (22-32); Chloride 98 mmol/L (98-107); Estimated Glomerular Filt Rate 25 mL/min (>60); Globulin 2.7 g/dL (1.7-4.1); Glucose 115 mg/dL (80-110); HEMOLYSIS < 15 (0-50); Magnesium 1.1 mg/dL (1.6-2.3); Potassium 4.4 mmol/L (3.4-5.1); Sodium 134 mmol/L (137-145); Total Protein 6.9 g/dL (6.3-8.2)
--- NOTE | 2024-07-24 16:27 | ED_ITS ---
HPI - Recheck/Abnormal Lab/Rx <Opal Hunter PA-C - Last Filed: 07/24/24 20:26> General Chief Complaint: Recheck/Abnormal Lab/Rx Stated Complaint: sent by PCP, magnesium infusion Time Seen by Provider: 07/24/24 16:27 Source: patient Mode of arrival: Ambulatory History of Present Illness HPI narrative: Mr. Velasquez is a very pleasant 88-year-old male with a past medical history of COPD, HTN, CKD who presents to the emergency department for low magnesium after being sent by his manager business operations Dr. Gray. Patient had routine labs done 2 days ago and reports that he was called today and told to come to the emergency department for repletion of low magnesium, he was unsure of the number. Patient states he feels at his baseline state of health, denies any symptoms or concerns. Denies chest pain, shortness of breath, blurred vision, muscle spasms, seizure-like activity, diarrhea. He still produces urine. Patient does admit to using a diuretic that he is unsure of the name. Magnesium found to be 1.1 in the emergency department. Related Data Home Medications Medication Instructions Recorded Confirmed albuterol sulfate 90 mcg/actuation 2 puff INH ##0 09/18/16 05/18/24 aerosol inhaler (Ventolin HFA) hydrochlorothiazide 25 mg tablet 25 mg PO QDAY ##0 09/18/16 05/18/24 tiotropium bromide 18 mcg capsule 18 mcg RT 0600 ##0 09/18/16 05/18/24 with inhalation device (Spiriva with HandiHaler) trazodone 50 mg tablet 50 mg PO BEDTIME 07/30/22 05/18/24 allopurinol 100 mg tablet 100 mg PO DAILY 08/20/22 05/18/24 losartan 100 mg tablet 100 mg PO DAILY 04/29/23 05/18/24 tamsulosin 0.4 mg capsule 0.4 mg PO DAILY 04/29/23 05/18/24 rosuvastatin 10 mg tablet 10 mg PO ONCE PM 08/21/23 05/18/24 metoprolol succinate 50 mg 50 mg PO DAILY 02/03/24 05/18/24 tablet,extended release 24 hr cefdinir 300 mg capsule 300 mg PO DAILY 05/18/24 05/18/24 erythromycin 5 mg/gram (0.5 %) eye 0.5 inch EYE-BOTH DAILY 05/18/24 05/18/24 ointment fluticasone 500 mcg-salmeterol 50 inhalation 05/18/24 05/18/24 mcg/dose blistr powdr for inhalation furosemide 20 mg tablet 20 mg PO DAILY 05/18/24 05/18/24 hydralazine 100 mg tablet 100 mg PO 3XD 05/18/24 05/18/24 ipratropium 20 mcg-albuterol 100 2 puff inhalation 4XD PRN 05/18/24 05/18/24 mcg/actuation mist for inhalation (Combivent Respimat) Previous Rx's Medication Instructions Recorded ondansetron 4 mg disintegrating 4 mg PO Q8H PRN nausea and 12/31/23 tablet vomiting #10 tabs tramadol 50 mg tablet 50 mg PO BID PRN pain #60 tabs 05/18/24 amoxicillin 875 mg-potassium 1 tab PO BID #20 tabs 06/29/24 clavulanate 125 mg tablet prednisone 10 mg tablets in a dose See Rx Instructions PO .COMPLEX 06/29/24 pack #21 ea Allergies Allergy/AdvReac Type Severity Reaction Status Date / Time No Known Drug Allergies Allergy Verified 06/29/24 19:34 Review of Systems <Opal Hunter PA-C - Last Filed: 07/24/24 20:26> Review of Systems ROS Unobtainable: All systems reviewed & are unremarkable except as noted in HPI and below Patient History <Opal Hunter PA-C - Last Filed: 07/24/24 20:26> Medical History Cervical radiculopathy Facet arthritis of cervical region Post-void dribbling History of malignant neoplasm of prostate Biceps tendonitis on right Cervical spondylosis Subacromial bursitis Shoulder impingement Neck pain Right shoulder pain Social History Smoking Status: Former smoker Smoking Status: Former smoker Alcohol type: wine Exam <Opal Hunter PA-C - Last Filed: 07/24/24 20:26> Narrative Exam Narrative: GENERAL: 88 year old patient appears stated age. Frail elderly patient, in no acute distress. HEAD: Atraumatic. Normocephalic. CARDIOVASCULAR: Regular rate and rhythm. RESPIRATORY: ?Nonlabored respirations. ?Speaking in clear, full sentences. ?Clear to auscultation. Breath sounds equal bilaterally. No wheezes, rales, or rhonchi. ? NEURO: AOx3. ?Clear speech. ?Moves all 4 extremities appropriately. SKIN: No rash or erythema of visible areas Initial Vital Signs Initial Vital Signs: Vital Signs Temperature 97.2 F L 07/24/24 14:54 Pulse Rate 70 07/24/24 14:54 Respiratory Rate 18 07/24/24 14:54 Blood Pressure 138/64 07/24/24 14:54 Pulse Oximetry 95 07/24/24 14:54 Oxygen Delivery Method Room Air 07/24/24 14:54 <Sam Cameron MD - Last Filed: 07/25/24 07:39> Initial Vital Signs Initial Vital Signs: Vital Signs Temperature 97.2 F L 07/24/24 14:54 Pulse Rate 70 07/24/24 14:54 Respiratory Rate 18 07/24/24 14:54 Blood Pressure 138/64 07/24/24 14:54 Pulse Oximetry 95 07/24/24 14:54 Oxygen Delivery Method Room Air 07/24/24 14:54 Course <Opal Hunter PA-C - Last Filed: 07/24/24 20:26> Orders Ordered: Discontinued Medications Magnesium Sulfate (Magnesium Sulfate) 2 gm in 50 mls @ 25 mls/hr IV NOW ONE Stop: 07/24/24 19:18 Last Infusion: 07/24/24 19:45 Dose: Infused Documented By: JED Co-signed By: ALEM Admin: 07/24/24 17:40 Dose: 25 mls/hr Documented By: JED Co-signed By: TRUNG Magnesium Chloride (Magnesium Chloride 64 Mg Tablet) 128 mg PO NOW ONE Stop: 07/24/24 18:14 Last Admin: 07/24/24 18:20 Dose: 128 mg Documented By: JED Vital Signs Vital signs: Vital Signs - 8 hr 07/24/24 14:54 07/24/24 17:40 07/24/24 18:11 Temperature 97.2 F L Pulse Rate 70 68 70 Respiratory Rate 18 Blood Pressure 138/64 140/63 140/93 H Pulse Oximetry 95 98 98 Oxygen Delivery Method Room Air Room Air 07/24/24 18:30 07/24/24 19:05 07/24/24 19:45 Temperature Pulse Rate 73 63 64 Respiratory Rate 18 16 18 Blood Pressure 146/65 H Pulse Oximetry 96 96 97 Oxygen Delivery Method Room Air <Sam Cameron MD - Last Filed: 07/25/24 07:39> Orders Ordered: Discontinued Medications Magnesium Sulfate (Magnesium Sulfate) 2 gm in 50 mls @ 25 mls/hr IV NOW ONE Stop: 07/24/24 19:18 Last Infusion: 07/24/24 19:45 Dose: Infused Documented By: JED Co-signed By: RB Admin: 07/24/24 17:40 Dose: 25 mls/hr Documented By: JED Co-signed By: TRUNG Magnesium Chloride (Magnesium Chloride 64 Mg Tablet) 128 mg PO NOW ONE Stop: 07/24/24 18:14 Last Admin: 07/24/24 18:20 Dose: 128 mg Documented By: JED Vital Signs Vital signs: Vital Signs - 8 hr 07/24/24 14:54 07/24/24 17:40 07/24/24 18:11 Temperature 97.2 F L Pulse Rate 70 68 70 Respiratory Rate 18 18 18 Blood Pressure 138/64 140/63 140/93 H Pulse Oximetry 95 98 98 Oxygen Delivery Method Room Air Room Air 07/24/24 18:30 07/24/24 19:05 07/24/24 19:45 Temperature Pulse Rate 73 63 64 Respiratory Rate 18 16 18 Blood Pressure 146/65 H Pulse Oximetry 96 96 97 Oxygen Delivery Method Room Air MDM - Recheck/Abnormal Lab/Rx <Opal Hunter PA-C - Last Filed: 07/24/24 20:26> Medical Records Attestation: I reviewed the patient's medical records. Medical records narrative: Reviewed prior ED visit on 06/29/2024 for sialadenitis, conjunctivitis in April 2024, dizziness in December 2023. Lab Data 07/24/24 15:11 07/24/24 15:11 Labs: Lab Results 07/24/24 07/24/24 Range/Units 15:11 19:40 WBC 4.0 L (4.5-11.0) X10^3/uL RBC 3.21 L (4.5-5.9) X10^6/uL Hgb 11.5 L (13.5-17.5) g/dL Hct 32.9 L (41-53) % MCV 102.3 H (80-100) fL MCH 36.0 H (26-34) PG MCHC 35.1 (30-36) % RDW 13.9 (11.6-14.8) % Plt Count 135 L (150-400) X10^3/uL Neut % (Auto) 72.9 (50-75) % Lymph % (Auto) 14.4 L (25-40) % Hettinger % (Auto) 9.2 (3-14) % Eos % (Auto) 2.7 (2-4) % Baso % (Auto) 0.8 (0-2) % Neut # (Auto) 2900 (4332-6396) /uL Lymph # (Auto) 600 L (8737-8826) /uL Hettinger # (Auto) 400 (0-900) /uL Eos # (Auto) 100 (0-450) /uL Baso # (Auto) 0 (0-100) /uL Sodium 134 L (137-145) mmol/L Potassium 4.4 (3.4-5.1) mmol/L Chloride 98 (98-107) mmol/L Carbon Dioxide 28 (22-32) mmol/L BUN 63 H (9-20) mg/dL Creatinine 2.45 H (0.66-1.25) mg/dL Estimated GFR 25 L (>60) mL/min BUN/Creatinine Ratio 25.7 H (6-22) Glucose 115 H (80-110) mg/dL Calcium 9.6 (8.4-10.2) mg/dL Magnesium 1.1 L 2.2 (1.6-2.3) mg/dL Total Bilirubin 0.8 (0.2-1.3) mg/dL AST 25 (17-59) IU/L ALT 18 (<50) IU/L Alkaline Phosphatase 61 (38-126) U/L Total Protein 6.9 (6.3-8.2) g/dL Albumin 4.2 (3.5-5.0) g/dL Globulin 2.7 (1.7-4.1) g/dL Albumin/Globulin Ratio 1.6 (1.0-2.8) MDM Narrative Medical decision making narrative: 88-year-old male with a past medical history of COPD, HTN, CKD who presents to the emergency department for low magnesium after being sent by his manager business operations Dr. Gray. Differential diagnosis includes but is not limited to hypomagnesemia, electrolyte disturbance, etc. On exam patient is in no acute distress, nontoxic appearing, vital signs appropriate. He is simply here to have his magnesium repleted, he does not know how low it was but was told he needed to come here. I am unable to see outpatient labs. Labs obtained today in the ED reveal a magnesium of 1.1. His CBC also reveals pancytopenia with a WBC count of 4.0, hemoglobin of 11.5 which is baseline, RBC count of 3.21, platelet count of 135. Labs from 1 month ago reveal acute on chronic renal failure as his BUN is 63 in his creatinine is 2.45, GFR 25. Normal potassium of 4.4. Normal calcium 9.6. Discussed magnesium replacement with pharmacy, 2 g of IV magnesium over 2 hours was ordered in addition to 128 of oral magnesium. Patient's magnesium was rechecked after completion of infusion and returned to normal range at 2.2 and he feels well. Discussed the importance of prompt follow up with the patient's PCP for pancytopenia, acute on chronic renal failure, and further evaluation/repeat check of his magnesium. Discussed very strict ED return precautions. Patient verbalized understanding of all information is agreeable with the plan, all questions answered, he is stable for discharge home. <Sam Cameron MD - Last Filed: 07/25/24 07:39> Lab Data Labs: Lab Results 07/24/24 07/24/24 Range/Units 15:11 19:40 WBC 4.0 L (4.5-11.0) X10^3/uL RBC 3.21 L (4.5-5.9) X10^6/uL Hgb 11.5 L (13.5-17.5) g/dL Hct 32.9 L (41-53) % MCV 102.3 H (80-100) fL MCH 36.0 H (26-34) PG MCHC 35.1 (30-36) % RDW 13.9 (11.6-14.8) % Plt Count 135 L (150-400) X10^3/uL Neut % (Auto) 72.9 (50-75) % Lymph % (Auto) 14.4 L (25-40) % Hettinger % (Auto) 9.2 (3-14) % Eos % (Auto) 2.7 (2-4) % Baso % (Auto) 0.8 (0-2) % Neut # (Auto) 2900 (4856-3757) /uL Lymph # (Auto) 600 L (4328-9573) /uL Hettinger # (Auto) 400 (0-900) /uL Eos # (Auto) 100 (0-450) /uL Baso # (Auto) 0 (0-100) /uL Sodium 134 L (137-145) mmol/L Potassium 4.4 (3.4-5.1) mmol/L Chloride 98 (98-107) mmol/L Carbon Dioxide 28 (22-32) mmol/L BUN 63 H (9-20) mg/dL Creatinine 2.45 H (0.66-1.25) mg/dL Estimated GFR 25 L (>60) mL/min BUN/Creatinine Ratio 25.7 H (6-22) Glucose 115 H (80-110) mg/dL Calcium 9.6 (8.4-10.2) mg/dL Magnesium 1.1 L 2.2 (1.6-2.3) mg/dL Total Bilirubin 0.8 (0.2-1.3) mg/dL AST 25 (17-59) IU/L ALT 18 (<50) IU/L Alkaline Phosphatase 61 (38-126) U/L Total Protein 6.9 (6.3-8.2) g/dL Albumin 4.2 (3.5-5.0) g/dL Globulin 2.7 (1.7-4.1) g/dL Albumin/Globulin Ratio 1.6 (1.0-2.8) Discharge Plan Departure Patient Disposition: Home Clinical Impression: Hypomagnesemia, Pancytopenia Acute on chronic renal failure Qualifiers: Acute renal failure type: unspecified Chronic kidney disease stage: unspecified stage Qualified Code(s): N17.9 - Acute kidney failure, unspecified Instructions: DI for Hypomagnesemia Activity Restrictions/Additional Instructions: Dear Mr. Bellacock, Thank you for coming to the emergency department, it was a pleasure meeting both you and your today. When you came in, your magnesium level was 1.1. After we repleted your magnesium, it is now 2.2 (Normal magnesium is 1.6 - 2.3). It is very important to follow up with your primary care doctor for further evaluation and repeat lab work. Your labs today did reveal something called pancytopenia which means your white blood cells, red blood cells and platelets were all slightly low. Your kidney function is also worse than it was 1 month ago. Please make sure to hydrate with fluids and see your primary care doctor soon as possible for repeat lab work. Return to the emergency department if you develop any new or worsening symptoms, concerns, or difficulty urinating. Please follow up with your primary care doctor within the next 2-3 days for ER follow-up. (If you do not have a PCP you can call [phone]. ?to schedule an appointment with an [facility] Primary Care Provider) IF YOU DEVELOP ANY NEW OR WORSENING SYMPTOMS, RETURN TO THE ER! Please read the attached instructions, they highlight more specific treatments and interventions for you at home. Thank you for letting me participate in your care, Opal Hunter PA-C Prescriptions: No Action hydrochlorothiazide 25 MG tablet 25 mg PO QDAY Qty: 0 albuterol sulfate [Ventolin HFA] 90 MCG/PUFF HFA aerosol inhaler 2 puff INH Qty: 0 tiotropium bromide [Spiriva with HandiHaler] 18 MCG capsule, w/inhalation device 18 mcg RT 0600 Qty: 0 ondansetron 4 mg tablet,disintegrating 4 mg PO Q8H PRN (Reason: nausea and vomiting) Qty: 10 0RF amoxicillin-pot clavulanate 875-125 mg tablet 1 tab PO BID Qty: 20 0RF prednisone 10 mg tablets,dose pack See Rx Instructions .ROUTE .COMPLEX Qty: 21 0RF Rx Instructions: 6 tabs p.o. x1 day, then 5 tabs p.o. x1 day, then 4 tablets p.o. x1 day, then 3 tabs p.o. x1 day, then 2 tabs p.o. x1 day, then 1 tab p.o. x1 day trazodone 50 mg tablet 50 mg PO BEDTIME Patient Comments: take 1 tablet by mouth at bedtime if needed allopurinol 100 mg tablet 100 mg PO DAILY tamsulosin 0.4 mg capsule 0.4 mg PO DAILY losartan 100 mg tablet 100 mg PO DAILY rosuvastatin 10 mg tablet 10 mg PO ONCE PM metoprolol succinate 50 mg tablet extended release 24 hr 50 mg PO DAILY cefdinir 300 mg capsule 300 mg PO DAILY erythromycin 5 mg/gram (0.5 %) ointment 0.5 inch EYE-BOTH DAILY Patient Comments: [NO ORIGINAL SIG] Combivent Respimat 20-100 mcg/actuation mist 2 puff inhalation 4XD PRN fluticasone propion-salmeterol 500-50 mcg/dose blister with device inhalation Patient Comments: [NO ORIGINAL SIG] hydralazine 100 mg tablet 100 mg PO 3XD furosemide 20 mg tablet 20 mg PO DAILY tramadol 50 mg tablet 50 mg PO BID PRN (Reason: pain) Qty: 60 3RF Referrals: Georgina Larsen PA-C [Primary Care Provider] - Stand Alone Forms: Patient Portal/API/Survey ED Sign-out <Sam Cameron MD - Last Filed: 07/25/24 07:39> Cosign ED Attending Cosgilbertature Attestation: I was immediately available in the department for consultation. ?This documentation has been reviewed and I agree with assessment and plan. Supervised by Sam Cameron MD
[2024-07-24 17:40] VITALS: BP 140/63; PULSE 68; RESP 18; O2SAT 98
[2024-07-24] MEDS: MAGNESIUM SULFATE 2 GM/50 ML PIGGYBACK IV (17:40)
[2024-07-24 18:11] VITALS: BP 140/93; PULSE 70; RESP 18; O2SAT 98
[2024-07-24] MEDS: MAGNESIUM CHLORIDE 64 MG TABLET 128 MG PO (18:20)
[2024-07-24 18:30] VITALS: PULSE 73; RESP 18; O2SAT 96
[2024-07-24 19:05] VITALS: PULSE 63; RESP 16; O2SAT 96
[2024-07-24 19:45] VITALS: BP 146/65; PULSE 64; RESP 18; O2SAT 97
[2024-07-24 20:18] LABS: Magnesium 2.2 mg/dL (1.6-2.3)
== END 2024-07-24 20:30 | disposition home or self-care (01) ==
PROVIDERS: Emergency Medicine; Emergency Provider Physician Assistant; PCP Physician Assistant
DX: E83.42 Hypomagnesemia (principal); D61.818 Other pancytopenia; N17.9 Acute kidney failure, unspecified; N18.9 Chronic kidney disease, unspecified
CPT/HCPCS: 36415; 80053; 83735; 85025; 96365; 96366; 99284; J3475

== ENCOUNTER → 2024-08-19 11:22 | Outpatient (CLI) | payer MEDICARE, SELFPAY ==
[2024-08-19 13:34] LABS: Magnesium 1.3 mg/dL (1.6-2.3)
== END ==
PROVIDERS: PCP Physician Assistant; Referring Provider Internal Medicine Cardiovascular Disease; Visit Provider Internal Medicine Cardiovascular Disease
DX: I10 Essential (primary) hypertension (principal); E83.42 Hypomagnesemia
CPT/HCPCS: 36415; 83735

== ENCOUNTER → 2024-11-16 09:30 | Outpatient (CLI) | payer MEDICARE, SELFPAY ==
--- NOTE | 2024-11-16 09:35 | DI.CT.S_ITS ---
PROCEDURE: CT CHEST ABD PEL W CON INDICATIONS: abnormal weight loss TECHNIQUE: After the administration of intravenous contrast, 5 mm thick sections acquired from the lung apices to the symphysis. 5 mm coronal and sagittal reformats were performed, with additional 7 mm MIP reformats through the lungs. For radiation dose reduction, the following was used: automated exposure control, adjustment of mA and/or kV according to patient size. COMPARISON: [facility], CT, CT CHEST WO CON, 07/02/2023, 10:35. FINDINGS: Image quality: Diagnostic Lungs and pleura: Emphysematous changes are seen. Mixed density moderate nodularity throughout the lower lobes and right upper lobe. The largest region is the right perihilar area. No pleural effusions. Mediastinum, heart, and esophagus: Normal heart size. Coronary calcifications. No enlarged lymph nodes by size criteria. Trace pericardial effusion. Chest wall and thyroid: Unremarkable Liver: Subcentimeter segment 4 lesion, too small to characterize, possibly a cyst or hemangioma. If clinically necessary, this could be confirmed with liver MRI. Gallbladder and biliary system: Unremarkable, nondilated Pancreas: No ductal dilation. Duodenal diverticula are seen adjacent to the ampulla Spleen: Nonenlarged Adrenals: No discrete nodules Kidneys: Nonobstructing renal calculi are seen on the left. Mild right pelviectasis, no ureter dilation or obstructing calculus identified. Vessels and lymph nodes: Abdominal aortic aneurysm in the infrarenal region measuring up to 3 cm AP dimension. Moderate aortoiliac atherosclerotic disease. No pathologic lymphadenopathy by size criteria. Bowel and peritoneum: No small bowel obstruction no drainable abscess or ascites. Colonic diverticulosis. Body wall: Small fat containing left inguinal hernia. Body wall is otherwise unremarkable Pelvis: Bladder is unremarkable. Post treatment changes at the prostate bed, not well assessed on CT. Bones: Degenerative osseous findings are present. No aggressive appearing focal osseous abnormality. IMPRESSION: Mixed density nodularity in the lungs, most confluent in the right lower lobe. Appearance favors infection/inflammation, however a 2-3 month follow-up chest CT is suggested to ensure resolution. No pleural effusions. Background emphysematous changes. No definite disseminated metastases in the abdomen/pelvis. Coronary calcifications. Abdominal aortic aneurysm measuring 3 cm. Other findings above. Dictated by: Abdulkadir Lovelace M.D. on 11/16/2024 at 15:23 Approved by: Abdulkadir Lovelace M.D. on 11/16/2024 at 15:31
[2024-11-16 09:56] LABS: Estimated Glomerular Filt Rate 32 mL/min (>60)
== END ==
LOC: DI 10:27 → CT 10:33
PROVIDERS: PCP Physician Assistant; Referring Provider Physician Assistant; Visit Provider Family Medicine
DX: R63.4 Abnormal weight loss (principal); R91.8 Other nonspecific abnormal finding of lung field; I71.43 Infrarenal abdominal aortic aneurysm, without rupture; I70.0 Atherosclerosis of aorta; I70.8 Atherosclerosis of other arteries; K40.90 Unilateral inguinal hernia, without obstruction or gangrene, not specified as recurrent
CPT/HCPCS: 36415; 71260; 74177; 82565; Q9967